=== PATIENT | female | born 1950 | race Two or more races ===

== ENCOUNTER 2024-04-09 10:17 | Emergency (ER) | payer MEDICARE, MEDICAID, SELFPAY ==
[2024-04-09 10:45] VITALS: BP 130/77; PULSE 95; RESP 20; TEMP 36.6; O2SAT 98; BMI 20.9
--- NOTE | 2024-04-09 10:49 | EKG_ITS ---
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1950 Requested By: Bridgette Martin ([facility]) [place] Order Number: [id number] Reading MD: Bridgette Martin ([facility]) [place]ar Measurements Intervals [place] Rate: 91 P: 18 AR: 124 QRS: -25 QRSD: 70 T: 6 QT: 358 QTc: 442 Interpretive Statements SINUS RHYTHM BORDERLINE LEFT AXIS DEVIATION [QRS AXIS < -20] LOW QRS VOLTAGE IN PRECORDIAL LEADS [QRS DEFLECTION < 1.0 mV IN CHEST LEADS] PATTERN CONSISTENT WITH PULMONARY DISEASE Compared to ECG 11/07/2023 14:47:40 No significant changes /store/S0/[id number].pdf
--- NOTE | 2024-04-09 10:49 | XR_ITS ---
Examination: PA lateral chest 2 views TECHNIQUE: Upright PA lateral chest 2 views Exam date and time: April 09, 2024 11:14 AM INDICATIONS: Coughing today FINDINGS: Normal heart size No lobar pneumonia No subclavian Port-A-Cath tip SVC satisfactory position Intact osseous structures IMPRESSION: Minor atelectasis left base No pneumonia identified
--- NOTE | 2024-04-09 11:10 | PD.EDRME ---
Rapid Medical Screening Exam RME Arrival date/time: 04/09/24 10:17 73-year-old female presents emergency department with complaints of shortness of breath, cough and a headache for 4 days. She was sent over by her oncologist for workup. I have greeted and performed a focused initial assessment of this patient. Initial appropriate labs ordered at this time. A comprehensive ED assessment and evaluation of the patient and analysis of all test and completion of medical decision making process will be conducted by additional ED provider. Chief Complaint: Flu Like Symptoms Time Seen by Provider: 04/09/24 10:42 Vital signs: Vital Signs Temperature 97.9 F 04/09/24 10:45 Pulse Rate 95 04/09/24 10:45 Respiratory Rate 20 04/09/24 10:45 Blood Pressure 130/77 04/09/24 10:45 Pulse Oximetry (%) 98 04/09/24 10:45 Oxygen Delivery Method Room Air 04/09/24 10:45
--- NOTE | 2024-04-09 11:12 | XR_ITS ---
Examination: CT brain head without contrast. 2-D sagittal coronal reconstructions Date and time of exam:April 09, 2024 1141 hours INDICATIONS: Sudden onset head pain today CTDI: vol (mGy):44.9 DLP: (mGycm):919 Technique: Multiple CT axial sections of the brain have been obtained, 5 mm slice thickness. Contrast has not been administered. 2-D sagittal, coronal reconstructions have been obtained Low dose protocols were performed. One or more of the following dose reduction techniques were used; automated exposure control, adjustment of the mA and/or KV according to patient size, use of iterative reconstruction technique. Findings: No significant ventricular enlargement. Encephalomalacia left frontal lobe Intra-axial or extra-axial hemorrhage density is not seen. No mass effect or midline shift Basal cisterns are not remarkable. Fourth ventricle is midline. Cranial vault intact. Impression: Negative for acute hemorrhage, mass effect or midline shift Significant chronic ethmoid sinusitis Bilateral acute maxillary sinusitis
[2024-04-09 11:28] LABS: Basophils % (Auto) 1 % (0-2.5); Eosinophils # (Auto) 0.1 Thou/mm3 (0.0-0.5); Eosinophils % (Auto) 1 % (0-10); Hematocrit 32.3 % (36.0-46.0); Hemoglobin 10.2 g/dL (12.0-16.0); Immature Granulocytes % (Auto) 1 % (0-0); Immature Granulocytes Auto 0.02 Thou/mm3 (0.00-0.00); Lymphocytes # (Auto) 1.7 Thou/mm3 (1.0-4.8); Lymphocytes % (Auto) 38 % (10-50); Mean Corpuscular HGB Conc 31.6 g/dl (31.0-37.0); Mean Corpuscular Hemoglobin 26.6 pg (25.0-35.0); Mean Corpuscular Volume 84 fL (80-100); Monocytes # (Auto) 0.5 Thou/mm3 (0.0-0.8); Monocytes % (Auto) 10 % (0-12); Neutrophils # (Auto) 2.2 Thou/mm3 (1.8-7.7); Neutrophils % (Auto) 50 % (37-80); Nucleated Red Blood Cell % 0 /100 WBC (0); Platelet Count 143 Thou/mm3 (140-440); Red Blood Count 3.84 Miln/mm3 (4.00-5.20); White Blood Count 4.4 Thou/mm3 (3.6-11.0)
[2024-04-09 11:41] LABS: INR 0.9 (0.9-1.3); Partial Thromboplastin Time 25.9 Seconds (22.0-36.0); Prothrombin Time 10.3 Seconds (9.0-12.2)
[2024-04-09 11:43] LABS: B-Type Natriuretic Peptide < 20 pg/mL (0-100)
[2024-04-09 11:46] LABS: Alanine Aminotransferase 17 U/L (10-49); Albumin, Serum 4.5 gm/dL (3.4-4.8); Alkaline Phosphatase 108 U/L (46-116); Anion Gap 5 (7-16); Aspartate Amino Transferase 22 U/L (0-34); BUN/Creatinine Ratio 15 Ratio (12-20); Bilirubin,Total 0.4 mg/dL (0.3-1.2); Blood Urea Nitrogen 9 mg/dL (9-23); Calcium 9.1 mg/dL (8.3-10.6); Calcium (Corrected) 9.1 mg/dL (8.5-10.1); Carbon Dioxide 26.1 mMol/L (20.0-31.0); Chloride 106 mMol/L (98-107); Creatinine (Component) 0.6 mg/dL (0.6-1.3); Estimated Creatinine Clearance 50.1 mL/min (>60); Globulin 2.3 gm/dL (2.3-3.5); Glucose 106 mg/dL (74-106); Lipase 36 U/L (12-53); Osmolality,Calculated 272 (275-295); Potassium 3.6 mMol/L (3.4-5.1); Sodium 137 mMol/L (136-145); Total Protein 6.8 gm/dL (5.7-8.2); Troponin I < 0.020 ng/mL (0.0-0.045); eGFR > 60 See Note
--- NOTE | 2024-04-09 13:26 | EDNOTE_ITS ---
Upper Respiratory Inf. RME/HPI General Chief Complaint: Flu Like Symptoms Stated Complaint: [place], WET COUGH, CONFUSION Time Seen by Provider: 04/09/24 10:42 Arrival date/time: 04/09/24 10:17 RME / HPI RME / HPI Narrative: 73-year-old female patient with significant history of breast cancer, currently on chemotherapy, was sent to us for evaluation regarding headache. Patient has been having headache that comes and goes, for the last 4 days, severity mild. Also complained of cough for 4 days. Associated with shortness of breath. Patient denies any fever. Denies any upper or lower extremity weakness. Patient is denying any slurring of speech also. Patient ambulatory with a walker. Denies any head trauma or fall. Related Data Home Medications ?Medication ?Instructions ?Recorded ?Confirmed atorvastatin 10 mg tablet 10 mg PO QDAY 11/07/23 11/08/23 Previous Rx's ?Medication ?Instructions ?Recorded amoxicillin 875 mg-potassium 1 tab PO BID #14 tabs 04/09/24 clavulanate 125 mg tablet Allergies Allergy/AdvReac Type Severity Reaction Status Date / Time No Known Allergies Allergy Verified 11/08/23 14:58 Review of Systems Review of Systems Narrative Review of Systems: Review of system reviewed and within normal limits except mentioned in HPI ED Exam Narrative Physical exam: VITAL SIGNS: Reviewed. GENERAL APPEARANCE: Alert and interactive, follows commands, no acute distress, HEAD AND FACE: Non-traumatic. ENT: PERRL, pink conjunctivitis, eyelid no trauma, Mucous membrane moist. NECK: Supple, nontender, no nuchal rigidity. CHEST: No tenderness, no crepitus, no paradoxical movement, no retractions. LUNGS: Clear, well ventilated, symmetric, no rales, no wheezing, no ronchi, no stridor, good breath sounds bilaterally. HEART: Regular rate, regular rhythm, no murmur, no gallops. ABDOMEN: Soft, positive bowel sounds, nondistended, no guarding, nontender, no rebound, no masses, RECTAL: Deferred. GENITAL: Deferred. NEUROLOGICAL: Gross motor function intact sensory function intact, Appropriate for age. MUSCULOSKELETAL: low back nontender, full range of motion. EXTREMITIES: Nontender, full range of motion. SKIN: Color pink, dry, no rash, no lacerations, no abrasions, no contusions. LYMPHATICS: Deferred. Course Quality Measures none Orders Category Date Time Status Bedside COVID-19 Antigen Test NOW Care 04/09/24 10:49 Active Bedside Influenza A&B Antigen Test NOW Care 04/09/24 10:49 Active EKG (ED ONLY) *Do not use* NOW Care 04/09/24 10:[address] head/brain wo con Stat Exams 04/09/24 11:12 Completed EKG (ED Only) Stat Exams 04/09/24 10:49 Draft XR chest 2V Stat Exams 04/09/24 10:49 Completed B-Type Natriuretic Peptide Stat Lab 04/09/24 11:03 Completed CBC Stat Lab 04/09/24 11:03 Completed Comprehensive Metabolic Panel Stat Lab 04/09/24 11:03 Completed Lipase Stat Lab 04/09/24 11:03 Completed Magnesium Stat Lab 04/09/24 11:03 Completed Partial Thromboplastin Time Stat Lab 04/09/24 11:03 Completed Prothrombin Time with INR Stat Lab 04/09/24 11:03 Completed Troponin I Stat Lab 04/09/24 11:03 Completed Amoxicillin/Pot Clav 875 [Augmentin 875] Med 04/09/24 14:01 Discontinued 1 tab PO X1 ONE Vital Signs Vital signs: Vital Signs Temperature 97.9 F 04/09/24 10:45 Pulse Rate 95 04/09/24 10:45 Respiratory Rate 20 04/09/24 10:45 Blood Pressure 130/77 04/09/24 10:45 Pulse Oximetry (%) 98 04/09/24 10:45 Oxygen Delivery Method Room Air 04/09/24 10:45 Upper Respiratory Infection MDM Narrative MDM Narrative:: 73-year-old female patient with significant history of breast cancer, currently on chemotherapy, was sent to us for evaluation regarding headache. Patient has been having headache that comes and goes, for the last 4 days, severity mild. Also complained of cough for 4 days. Associated with shortness of breath. Patient denies any fever. Denies any upper or lower extremity weakness. Patient is denying any slurring of speech also. Patient ambulatory with a walker. Denies any head trauma or fall. Laboratory workup all came back normal. CT scan of the head showed sinusitis otherwise unremarkable. Chest x-ray no pneumonia noted. Patient was given Augmentin in the emergency room. Patient data External records reviewed:: None Clinical information provided by:: none Social determinants that could affect healthcare access:: none Patient has the following chronic illnesses:: Breast cancer How is presenting disease/condition affected by chronic disease/condition?: uneffected by Evaluation data The following diagnostics were reviewed and interpreted by me:: lab results, radiology exam(s) and EKG tracing(s) Lab and/or radiology exams considered but not ordered:: None Interpretation Summary: EKG as interpreted by me showed sinus rhythm, ventricular rate of 91 bpm, no ST segment elevation or depression noted. CT scan of the head came back unremarkable except for sinusitis. I personally reviewed and interpreted the x- ray of this patient. There is no acute abnormalities found, no infiltrates no pneumothorax no hemothorax normal chest x-ray. Review of other structures was without significant abnormal findings also. I additionally reviewed the radiologist report and agree with the interpretation. Medications / Prescriptions Medications or Prescriptions considered but not ordered:: None Medication administrations:: Medication Administration History Discontinued Medications Amoxicillin/Clavulanate Potassium (Amoxicillin/Pot Clav 875 Tablet) 1 tab PO X1 ONE Stop: 04/09/24 14:02 Augmentin Consultations Consultation(s) initiated? (list below): No Diagnosis Upper Respiratory Differential Diagnosis: upper respiratory infection, sinusitis and bronchitis Most likely diagnosis given after review of the tests above:: Headache, sinusitis, cough Admission Indicated Admission indicated?: not indicated Explain why admission is indicated or not indicated:: Stable Admission Request Was there a request for admission?: No Disposition Plan Disposition Plan: Discharge Discharge Attestation Discharge Attestation: The patient was given an opportunity to ask questions and understood the discharge instructions. Discharge instructions specifically effects, indications for sooner follow up or return to the emergency department, and the expected course of current diagnosis. Patient condition: Stable Discharge Plan Plan Patient Disposition: HOME (Self Care) Disposition Comment: stable Prescriptions/Referrals Prescriptions/Med Rec: New amoxicillin-pot clavulanate 875-125 mg tablet 1 tab PO BID Qty: 14 0RF No Action atorvastatin 10 mg Tablet 10 mg PO QDAY Referrals: No Primary/Family,Physician [Primary Care Provider] - In 1 week Problem List Clinical Impression: Sinusitis, Headache, Cough Patient/Caregiver Discharge Instructions Discharge Activity: activity as tolerated Education Materials: Causes of Sinusitis Additional Instructions: Thank you for the opportunity for serving you today. You are stable for discharged . You are advised to: Follow-up with your PCP in 1 to 2 days Return to ED for worsening of symptoms Increase oral fluids Take medication as prescribed Print Language: Prydeinig Stand Alone Forms: Hayley Award Info., Patient Portal Info Letter PA/ASSISTANT AUDITOR Supervising Physician LEYDA/BETO Supervising Physician: MD Mini
[2024-04-09] MEDS: AMOXICILLIN/POT CLAV 875 TABLET 1 TAB PO (14:50)
== END 2024-04-09 14:56 | disposition home or self-care (01) ==
PROVIDERS: Nurse Practitioner Primary Care; Emergency Provider Emergency Medicine
DX: J32.8 Other chronic sinusitis (principal); R94.31 Abnormal electrocardiogram [ECG] [EKG]; R05.9 Cough, unspecified
CPT/HCPCS: 36415; 70450; 71046; 80053; 83690; 83735; 83880; 84484; 85025; 85610; 85730; 93005; 99284; A9270

== ENCOUNTER 2024-04-16 07:55 | Outpatient (RCR) | payer MEDICARE, MEDICAID, SELFPAY ==
[2024-04-08 16:31] LABS: Basophils % (Auto) 0 % (0-2.5); Eosinophils % (Auto) 1 % (0-10); Hemoglobin 9.5 g/dL (12.0-16.0); Immature Granulocytes % (Auto) 1 % (0-0); Immature Granulocytes Auto 0.02 Thou/mm3 (0.00-0.00); Lymphocytes # (Auto) 1.8 Thou/mm3 (1.0-4.8); Lymphocytes % (Auto) 47 % (10-50); Mean Corpuscular HGB Conc 31.7 g/dl (31.0-37.0); Mean Corpuscular Hemoglobin 26.6 pg (25.0-35.0); Mean Corpuscular Volume 84 fL (80-100); Monocytes # (Auto) 0.5 Thou/mm3 (0.0-0.8); Monocytes % (Auto) 14 % (0-12); Neutrophils # (Auto) 1.4 Thou/mm3 (1.8-7.7); Neutrophils % (Auto) 37 % (37-80); Nucleated Red Blood Cell % 0 /100 WBC (0); Platelet Count 141 Thou/mm3 (140-440); RDW Standard Deviation 55.1 fL (36.4-46.3); Red Blood Count 3.57 Miln/mm3 (4.00-5.20); White Blood Count 3.8 Thou/mm3 (3.6-11.0)
[2024-04-08 17:06] LABS: Alanine Aminotransferase 19 U/L (10-49); Albumin, Serum 4.3 gm/dL (3.4-4.8); Alkaline Phosphatase 101 U/L (46-116); Anion Gap 8 (7-16); Aspartate Amino Transferase 18 U/L (0-34); BUN/Creatinine Ratio 20 Ratio (12-20); Bilirubin,Total 0.3 mg/dL (0.3-1.2); Blood Urea Nitrogen 12 mg/dL (9-23); Calcium 9.1 mg/dL (8.3-10.6); Calcium (Corrected) 9.1 mg/dL (8.5-10.1); Carbon Dioxide 23.7 mMol/L (20.0-31.0); Chloride 107 mMol/L (98-107); Creatinine (Component) 0.6 mg/dL (0.6-1.3); Globulin 2.1 gm/dL (2.3-3.5); Glucose 91 mg/dL (74-106); Osmolality,Calculated 277 (275-295); Potassium 3.6 mMol/L (3.4-5.1); Sodium 139 mMol/L (136-145); Thyroid Stimulating Hormone 2.09 uIU/mL (0.55-4.78); Total Protein 6.4 gm/dL (5.7-8.2); eGFR > 60 See Note
[2024-04-15 14:52] LABS: Basophils % (Auto) 0 % (0-2.5); Eosinophils # (Auto) 0.1 Thou/mm3 (0.0-0.5); Eosinophils % (Auto) 1 % (0-10); Hematocrit 31.5 % (36.0-46.0); Hemoglobin 10.2 g/dL (12.0-16.0); Immature Granulocytes % (Auto) 0 % (0-0); Immature Granulocytes Auto 0.02 Thou/mm3 (0.00-0.00); Lymphocytes # (Auto) 2.2 Thou/mm3 (1.0-4.8); Lymphocytes % (Auto) 36 % (10-50); Mean Corpuscular HGB Conc 32.4 g/dl (31.0-37.0); Mean Corpuscular Hemoglobin 26.8 pg (25.0-35.0); Mean Corpuscular Volume 83 fL (80-100); Monocytes # (Auto) 0.6 Thou/mm3 (0.0-0.8); Monocytes % (Auto) 10 % (0-12); Neutrophils # (Auto) 3.3 Thou/mm3 (1.8-7.7); Neutrophils % (Auto) 52 % (37-80); Nucleated Red Blood Cell % 0 /100 WBC (0); Platelet Count 170 Thou/mm3 (140-440); RDW Standard Deviation 55.9 fL (36.4-46.3); White Blood Count 6.3 Thou/mm3 (3.6-11.0)
[2024-04-15 15:14] LABS: Alanine Aminotransferase 13 U/L (10-49); Albumin, Serum 4.3 gm/dL (3.4-4.8); Alkaline Phosphatase 97 U/L (46-116); Anion Gap 6 (7-16); Aspartate Amino Transferase 17 U/L (0-34); BUN/Creatinine Ratio 15 Ratio (12-20); Bilirubin,Total 0.3 mg/dL (0.3-1.2); Blood Urea Nitrogen 9 mg/dL (9-23); Calcium 9.1 mg/dL (8.3-10.6); Calcium (Corrected) 9.1 mg/dL (8.5-10.1); Carbon Dioxide 26.9 mMol/L (20.0-31.0); Chloride 107 mMol/L (98-107); Creatinine (Component) 0.6 mg/dL (0.6-1.3); Globulin 2.1 gm/dL (2.3-3.5); Glucose 100 mg/dL (74-106); Osmolality,Calculated 278 (275-295); Potassium 3.7 mMol/L (3.4-5.1); Sodium 140 mMol/L (136-145); Total Protein 6.4 gm/dL (5.7-8.2); eGFR > 60 See Note
== END 2024-04-25 23:59 | disposition home or self-care (01) ==
LOC: SCTC 07:55
PROVIDERS: PCP Family Medicine; Referring Provider Family Medicine; Visit Provider Internal Medicine Hematology & Oncology
DX: C50.412 Malignant neoplasm of upper-outer quadrant of left female breast (principal); Z17.421 Hormone receptor negative with human epidermal growth factor receptor 2 negative status; Z85.6 Personal history of leukemia
CPT/HCPCS: 36591; 80053; 84443; 85025; 96365; 96372; A4216; J0696; J1100; J1442; J1453; J1642; J2405; J3490; J7050; J9045; J9267

== ENCOUNTER → 2024-04-22 | Outpatient (CLI) | payer MEDICARE, MEDICAID, SELFPAY ==
--- NOTE | 2024-04-22 14:05 | ECHO_ITS ---
Transthoracic Echo Report Ht (in): 57 Wt (lb): 95 Exam Location: Echo Lab Status: Outpatient Retail Stocker: Ana Strauss Indications: Procedure Performed: BP: / HR: Rhythm: Sinus Technical Quality: Fair MEASUREMENTS (Male / Female) Normal Values 2D ECHO LV Diastolic Diameter PLAX 3.2 cm 4.2 - 5.9 / 3.9 - 5.3 cm LV Systolic Diameter PLAX 2.4 cm IVS Diastolic Thickness 0.7 cm 0.6 - 1.0 / 0.6 - 0.9 cm LVPW Diastolic Thickness 0.7 cm 0.6 - 1.0 / 0.6 - 0.9 cm LV Relative Wall Thickness 0.5 LVOT Diameter 1.5 cm LA Volume Index 15.2 cm?/m? 16 - 28 cm?/m? Ascending Aorta Diameter 2.4 cm M-MODE Aortic Root Diameter MM 2.4 cm LA Systolic Diameter MM 2.2 cm LA Ao Ratio MM 0.9 AV Cusp Separation MM 1.5 cm DOPPLER AV Peak Velocity 112.0 cm/s AV Peak Gradient 5.0 mmHg AV Mean Gradient 2.0 mmHg AV Velocity Time Integral 19.3 cm LVOT Peak Velocity 79.1 cm/s LVOT Peak Gradient 2.5 mmHg LVOT Velocity Time Integral 15.3 cm AV Area Cont Eq vti 1.4 cm? AV Area Cont Eq pk 1.2 cm? MV Peak Velocity 96.1 cm/s MV Peak Gradient 3.7 mmHg MV Mean Velocity 57.4 cm/s MV Mean Gradient 2.0 mmHg MV Area PHT 4.9 cm? Mitral E Point Velocity 45.6 cm/s Mitral A Point Velocity 76.2 cm/s Mitral E to A Ratio 0.6 LV E' Lateral Velocity 6.5 cm/s Mitral E to LV E' Lateral Ratio 7.0 LV E' Septal Velocity 4.6 cm/s Mitral E to LV E' Septal Ratio 10.0 FINDINGS Left Ventricle Normal left ventricular size, wall thickness, systolic function with no obvious regional wall motion abnormalities.The ejection fraction is visually estimated at 55-60 %. Right Ventricle The right ventricle is normal in size and systolic function. Left Atrium The left atrium is normal by two-dimensional, color flow and Doppler imaging with no structural abnormalities, no thrombus formation present. Right Atrium The right atrium is normal by two-dimensional imaging, color flow and Doppler imaging with no struct ural abnormalities, no thrombus formation present. Atrial Septum The interatrial septum appears normal with no evidence of a shunt. Aorta The aorta is normal by two-dimensional, color flow and Doppler interrogation. Mitral Valve The mitral valve is normal by two-dimensional, color flow and Doppler interrogation. There is trace mitral valve regurgitation. Aortic Valve The aortic valve is trileaflet and normal by two-dimensional, color flow and Doppler interrogation. There is no significant aortic valve regurgitation. Tricuspid Valve The tricuspid valve is normal by two-dimensional, color flow and Doppler interrogation. There is tra ce tricuspid valve regurgitation. Pulmonic Valve There is no significant pulmonic valve regurgitation. Vessels The pulmonary artery appears normal. The inferior vena cava pulmonary and hepatic veins appear frances l. Pericardium The pericardium is normal by two-dimensional imaging. There is no significant pericardial effusion. CONCLUSIONS Normal LV size and function. Estimated EF 55-60% Normal RV size and function. Trace TR, TR. Keysha Gaines (Electronically Signed) Final Date: 26 April 2024 10:13
== END | disposition home or self-care (01) ==
PROVIDERS: PCP Physician Assistant; Referring Provider Internal Medicine Hematology & Oncology; Visit Provider Internal Medicine Hematology & Oncology
DX: I08.1 Rheumatic disorders of both mitral and tricuspid valves (principal); C50.112 Malignant neoplasm of central portion of left female breast
CPT/HCPCS: 93306

== ENCOUNTER 2024-05-26 08:03 | Outpatient (RCR) | payer MEDICARE, MEDICAID, SELFPAY ==
[2024-04-30 08:39] LABS: Basophils % (Auto) 0 % (0-2.5); Eosinophils # (Auto) 0.2 Thou/mm3 (0.0-0.5); Eosinophils % (Auto) 2 % (0-10); Hematocrit 32.8 % (36.0-46.0); Hemoglobin 10.5 g/dL (12.0-16.0); Immature Granulocytes % (Auto) 0 % (0-0); Immature Granulocytes Auto 0.01 Thou/mm3 (0.00-0.00); Lymphocytes # (Auto) 2.8 Thou/mm3 (1.0-4.8); Lymphocytes % (Auto) 45 % (10-50); Mean Corpuscular Hemoglobin 26.3 pg (25.0-35.0); Mean Corpuscular Volume 82 fL (80-100); Monocytes # (Auto) 0.5 Thou/mm3 (0.0-0.8); Monocytes % (Auto) 8 % (0-12); Neutrophils # (Auto) 2.7 Thou/mm3 (1.8-7.7); Neutrophils % (Auto) 44 % (37-80); Nucleated Red Blood Cell % 0 /100 WBC (0); Platelet Count 133 Thou/mm3 (140-440); RDW Standard Deviation 52.2 fL (36.4-46.3); White Blood Count 6.2 Thou/mm3 (3.6-11.0)
[2024-04-30 08:57] LABS: Alanine Aminotransferase 12 U/L (10-49); Albumin, Serum 4.4 gm/dL (3.4-4.8); Albumin/Globulin Ratio 2.1 (1.2-2.2); Alkaline Phosphatase 95 U/L (46-116); Anion Gap 7 (7-16); Aspartate Amino Transferase 17 U/L (0-34); BUN/Creatinine Ratio 21 Ratio (12-20); Bilirubin,Total 0.7 mg/dL (0.3-1.2); Blood Urea Nitrogen 15 mg/dL (9-23); Calcium 9.2 mg/dL (8.3-10.6); Calcium (Corrected) 9.2 mg/dL (8.5-10.1); Carbon Dioxide 26.1 mMol/L (20.0-31.0); Chloride 106 mMol/L (98-107); Creatinine (Component) 0.7 mg/dL (0.6-1.3); Globulin 2.1 gm/dL (2.3-3.5); Glucose 101 mg/dL (74-106); Osmolality,Calculated 278 (275-295); Sodium 139 mMol/L (136-145); Total Protein 6.5 gm/dL (5.7-8.2); eGFR > 60 See Note
[2024-05-07 08:38] LABS: Basophils % (Auto) 1 % (0-2.5); Eosinophils # (Auto) 0.1 Thou/mm3 (0.0-0.5); Eosinophils % (Auto) 2 % (0-10); Hematocrit 31.3 % (36.0-46.0); Hemoglobin 9.9 g/dL (12.0-16.0); Immature Granulocytes % (Auto) 1 % (0-0); Immature Granulocytes Auto 0.05 Thou/mm3 (0.00-0.00); Lymphocytes # (Auto) 1.6 Thou/mm3 (1.0-4.8); Lymphocytes % (Auto) 38 % (10-50); Mean Corpuscular HGB Conc 31.6 g/dl (31.0-37.0); Mean Corpuscular Hemoglobin 26.3 pg (25.0-35.0); Mean Corpuscular Volume 83 fL (80-100); Monocytes # (Auto) 0.2 Thou/mm3 (0.0-0.8); Monocytes % (Auto) 4 % (0-12); Neutrophils # (Auto) 2.3 Thou/mm3 (1.8-7.7); Neutrophils % (Auto) 55 % (37-80); Nucleated Red Blood Cell % 0 /100 WBC (0); Platelet Count 108 Thou/mm3 (140-440); RDW Standard Deviation 51.6 fL (36.4-46.3); Red Blood Count 3.77 Miln/mm3 (4.00-5.20); White Blood Count 4.1 Thou/mm3 (3.6-11.0)
[2024-05-07 09:00] LABS: Alanine Aminotransferase 12 U/L (10-49); Albumin, Serum 4.2 gm/dL (3.4-4.8); Albumin/Globulin Ratio 2.1 (1.2-2.2); Alkaline Phosphatase 83 U/L (46-116); Anion Gap 5 (7-16); BUN/Creatinine Ratio 37 Ratio (12-20); Bilirubin,Total 0.4 mg/dL (0.3-1.2); Blood Urea Nitrogen 22 mg/dL (9-23); Calcium 9.1 mg/dL (8.3-10.6); Calcium (Corrected) 9.1 mg/dL (8.5-10.1); Carbon Dioxide 24.9 mMol/L (20.0-31.0); Chloride 107 mMol/L (98-107); Creatinine (Component) 0.6 mg/dL (0.6-1.3); Glucose 95 mg/dL (74-106); Osmolality,Calculated 277 (275-295); Potassium 4.4 mMol/L (3.4-5.1); Sodium 137 mMol/L (136-145); Total Protein 6.2 gm/dL (5.7-8.2); eGFR > 60 See Note
[2024-05-07 09:14] LABS: Aspartate Amino Transferase 13 U/L (0-34)
[2024-05-13 15:59] LABS: Basophils % (Auto) 0 % (0-2.5); Eosinophils # (Auto) 0.1 Thou/mm3 (0.0-0.5); Eosinophils % (Auto) 2 % (0-10); Hematocrit 28.4 % (36.0-46.0); Hemoglobin 9.2 g/dL (12.0-16.0); Immature Granulocytes % (Auto) 0 % (0-0); Immature Granulocytes Auto 0.01 Thou/mm3 (0.00-0.00); Lymphocytes # (Auto) 1.8 Thou/mm3 (1.0-4.8); Lymphocytes % (Auto) 66 % (10-50); Mean Corpuscular HGB Conc 32.4 g/dl (31.0-37.0); Mean Corpuscular Hemoglobin 26.4 pg (25.0-35.0); Mean Corpuscular Volume 81 fL (80-100); Monocytes # (Auto) 0.2 Thou/mm3 (0.0-0.8); Monocytes % (Auto) 8 % (0-12); Neutrophils # (Auto) 0.6 Thou/mm3 (1.8-7.7); Neutrophils % (Auto) 23 % (37-80); Nucleated Red Blood Cell % 0 /100 WBC (0); Platelet Count 112 Thou/mm3 (140-440); RDW Standard Deviation 51.8 fL (36.4-46.3); Red Blood Count 3.49 Miln/mm3 (4.00-5.20)
[2024-05-13 16:15] LABS: White Blood Count 2.7 Thou/mm3 (3.6-11.0)
[2024-05-13 16:21] LABS: Alanine Aminotransferase 11 U/L (10-49); Albumin, Serum 4.1 gm/dL (3.4-4.8); Albumin/Globulin Ratio 2.2 (1.2-2.2); Alkaline Phosphatase 93 U/L (46-116); Anion Gap 7 (7-16); Aspartate Amino Transferase 14 U/L (0-34); BUN/Creatinine Ratio 22 Ratio (12-20); Bilirubin,Total 0.3 mg/dL (0.3-1.2); Blood Urea Nitrogen 13 mg/dL (9-23); Calcium 8.6 mg/dL (8.3-10.6); Calcium (Corrected) 8.6 mg/dL (8.5-10.1); Carbon Dioxide 26.2 mMol/L (20.0-31.0); Chloride 106 mMol/L (98-107); Creatinine (Component) 0.6 mg/dL (0.6-1.3); Globulin 1.9 gm/dL (2.3-3.5); Glucose 113 mg/dL (74-106); Osmolality,Calculated 278 (275-295); Potassium 3.8 mMol/L (3.4-5.1); Sodium 139 mMol/L (136-145); Thyroid Stimulating Hormone 2.26 uIU/mL (0.55-4.78); eGFR > 60 See Note
[2024-05-26 08:57] LABS: Basophils % (Auto) 0 % (0-2.5); Eosinophils # (Auto) 0.1 Thou/mm3 (0.0-0.5); Eosinophils % (Auto) 1 % (0-10); Hematocrit 33.7 % (36.0-46.0); Hemoglobin 10.6 g/dL (12.0-16.0); Immature Granulocytes % (Auto) 0 % (0-0); Immature Granulocytes Auto 0.01 Thou/mm3 (0.00-0.00); Lymphocytes # (Auto) 2.2 Thou/mm3 (1.0-4.8); Lymphocytes % (Auto) 45 % (10-50); Mean Corpuscular HGB Conc 31.5 g/dl (31.0-37.0); Mean Corpuscular Hemoglobin 26.2 pg (25.0-35.0); Mean Corpuscular Volume 83 fL (80-100); Monocytes # (Auto) 0.5 Thou/mm3 (0.0-0.8); Monocytes % (Auto) 11 % (0-12); Neutrophils # (Auto) 2.1 Thou/mm3 (1.8-7.7); Neutrophils % (Auto) 43 % (37-80); Nucleated Red Blood Cell % 0 /100 WBC (0); Platelet Count 149 Thou/mm3 (140-440); RDW Standard Deviation 53.9 fL (36.4-46.3); Red Blood Count 4.05 Miln/mm3 (4.00-5.20); White Blood Count 4.9 Thou/mm3 (3.6-11.0)
[2024-05-26 09:21] LABS: Alanine Aminotransferase 14 U/L (10-49); Albumin/Globulin Ratio 1.8 (1.2-2.2); Alkaline Phosphatase 101 U/L (46-116); Anion Gap 7 (7-16); Aspartate Amino Transferase 20 U/L (0-34); BUN/Creatinine Ratio 14 Ratio (12-20); Bilirubin,Total 0.4 mg/dL (0.3-1.2); Blood Urea Nitrogen 11 mg/dL (9-23); Calcium 9.8 mg/dL (8.3-10.6); Calcium (Corrected) 9.8 mg/dL (8.5-10.1); Carbon Dioxide 26.7 mMol/L (20.0-31.0); Chloride 107 mMol/L (98-107); Creatinine (Component) 0.8 mg/dL (0.6-1.3); Free T4 (Free Thyroxine) 1.13 ng/dL (0.89-1.76); Globulin 2.2 gm/dL (2.3-3.5); Glucose 99 mg/dL (74-106); Osmolality,Calculated 280 (275-295); Potassium 4.3 mMol/L (3.4-5.1); Sodium 141 mMol/L (136-145); Thyroid Stimulating Hormone 2.98 uIU/mL (0.55-4.78); Total Protein 6.2 gm/dL (5.7-8.2); eGFR > 60 See Note
== END 2024-05-26 23:59 | disposition home or self-care (01) ==
LOC: SCTC 08:03
PROVIDERS: PCP Physician Assistant; Referring Provider Physician Assistant; Visit Provider Internal Medicine Hematology & Oncology
DX: Z51.11 Encounter for antineoplastic chemotherapy (principal); C50.412 Malignant neoplasm of upper-outer quadrant of left female breast; Z17.421 Hormone receptor negative with human epidermal growth factor receptor 2 negative status; Z85.6 Personal history of leukemia
CPT/HCPCS: 36591; 80053; 84439; 84443; 85025; 96367; 96372; 96375; 96413; 96417; A4216; J1100; J1453; J1642; J2405; J3490; J7040; J7050; J9045; J9267; Q5101; A9270

== ENCOUNTER 2024-06-18 13:02 | Outpatient (RCR) | payer MEDICARE, MEDICAID, SELFPAY ==
--- NOTE | 2024-06-03 01:37 | CTCFLWUP_ITS ---
Patient: SHIRA GALLEGOS : 1950 Page 3 of 4 FOLLOW UP NOTE DATE OF SERVICE: 06/02/2024 NAME: SHIRA GALLEGOS ACCOUNT: [id number] : 1950 AGE: 73 INTERVAL HISTORY: Patient is diagnosed with triple negative breast cancer and is on chemotherapy based on keynote trial . ONCOLOGY HISTORY: DIAGNOSIS: Malignant neoplasm of central portion of left female breast [ICD10] C50.112 DATE OF DIAGNOSIS: Initial diagnosis in 2021 STAGE/TNM: TREATMENT HISTORY: Care?Plan Start?Date Cycle Day Intent DOXOrubicin?60,?Cyclophos?600?q?3wks 01/30/2024 1 21 Palliative Taxol?175/m2?q?2?wks?q?3wks?for?4?cycles 12/12/2023 1 21 Curative?(primary) TNBC?Pembro?17?cy?TaxCar?4?cy?Keynote?522?amended 11/21/2023 1 21 De-Bulking TNBC?Pembro?17?cy?TaxCar?4?cy?Keynote?522?amended 12/17/2023 1 21 De-Bulking HISTORY OF PRESENT ILLNESS: Shira Gallegos is a 73-year-old ENG speaking female currently undergoing chemotherapy at [facility] transferred her care to our center due to transportation reasons. Accordi ng to the patient she had 3 cycles of AC chemotherapy so far. Her last chemo was given in June 28. Ms. Gallegos was tolerating chemotherapy reasonably well. She also has Chemo-Port in place. Acc ording to Ms. Gallegos it was never used and it was causing a lot of pain. She wants the Chemo-Port to be removed. I have very few records of her care. Will try to get the records. She also has a hist ory of CLL. 12/02/2023: Ms. Gallegos had her fourth cycle of AC chemotherapy. 12/17/2023: Ms. Gallegos received first cycle of neoadjuvant pembrolizumab paclitaxel and carboplatin. 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 Compazine - 10 mg 1 tab As directed 2. Ibuprofen 200 - 200 mg tab As directed 3. ondansetron - 8 mg 1 tab As directed Medications Last Reconciled by Arminda Marrero MA on 06/02/2024 ALLERGIES: No Known Drug Allergies REVIEW OF SYSTEMS: A complete 14-point review of systems was performed and is negative except as noted in interval histo ry. PHYSICAL EXAMINATION: VITAL SIGNS: Temperature?99.3, B/P?119/79, Oxygen?Saturation?99% Weight?98.2?lbs (Change?since?05/28/24 :?-1.6?lbs) PAIN: 0 - No pain ECOG Performance Status: 2 - Symptomatic; ambulatory; capable of self-care; >50% of waking hrs. not i n bed GENERAL APPEARANCE: Appears well, in no apparent distress, appropriately interactive. HEENT: Normocephalic, no temporal wasting, normal conjunctiva, no scleral icterus, normal hearing, li ps without lesions, neck normal range of motion. CARDIOVASCULAR: Not assessed. PULMONARY: Normal respiratory effort, no respiratory distress or use of accessory muscles, speaking i n full sentences, no tachypnea. EXTREMITIES: No pedal edema or cyanosis. SKIN: Normal skin appearance. NEUROLOGIC: Alert and oriented x4. PSHYCHIATRIC: Appropriate affect, mood normal, behavior normal, intact thought and speech. Breast examination shows residual mass about 1 to 2 cm LABORATORY DATA: I have personally reviewed and interpreted each of the patient?s relevant lab tests, abnormal finding s are below: Date 05/26/24 ??WHITE?BLOOD?COUNT?(Thou/mm3) 4.9 ??RED?BLOOD?COUNT?(Miln/mm3) 4.05 ??HEMOGLOBIN?(gm/dl) 10.6?L ??HEMATOCRIT?(%) 33.7?L ??PLATELET?COUNT?(Thou/mm3) 149 ??NEUTROPHILS?%,?AUTO?(%) 43 ??LYMPH?%,?AUTO?(%) 45 ??NEUTROPHILS,?AUTO?(Thou/mm3) 2.1 ASSESSMENT/PLAN: 1. Ms. Gallegos has about 3 to 4 cm mass palpable in the left breast. S/p cycle 4 pembrolizumab, Taxol and carboplatin chemotherapy on 02/11/2024 in the neoadjuvant setting. 2. She recently had a fourth cycle of AC chemotherapy in the neoadjuvant. 3. triple negative breast cancer of the right breast. 4. Patient had 3 cycles of neoadjuvant AC chemotherapy so far. Her last chemo was given in June 2023. 5. History of CLL. Chemotherapy is complete Discussed with surgeon and patient will proceed with lumpectomy or mastectomy as per patient and surg jemal's decision will continue immunotherapy Once surgery date is established, immunotherapy can be held 3 weeks before surgery. Immunotherapy ca n be resumed after 3 weeks of surgery. Will continue immunotherapy for total 1 year. CBC CMP TSH T4 RETURN TO CLINIC: 4 to 6 weeks BILLING AND COMPLIANCE: I reviewed external records from providers outside my specialty as summarized above. I spent a total of 50 minutes on this patient?s care on the day of their visit excluding time spent related to any bi lled procedures. This time includes time spent with the patient as well as time spent documenting in the medical record, reviewing patients records and tests, obtaining history, placing orders, communi cating with other healthcare professionals, counseling the patient, family or caregiver, and/or care coordination for the diagnoses above. Electronically Signed by: Konstantin Azar MD T: 1:35 AM CC: PCP: Cody Royal Referring: Cody Royal This document was completed utilizing speech recognition software. Grammatical errors, random word in sertions, pronoun errors, and incomplete sentences are an occasional consequence of this system due t o software limitations, ambient noise, and hardware issues. Any formal questions or concerns about th e content, text or information contained within the body of this dictation should be directly address ed to the provider for clarification.
[2024-06-17 11:11] LABS: Basophils % (Auto) 0 % (0-2.5); Eosinophils # (Auto) 0.8 Thou/mm3 (0.0-0.5); Eosinophils % (Auto) 11 % (0-10); Hematocrit 34.9 % (36.0-46.0); Hemoglobin 11.2 g/dL (12.0-16.0); Immature Granulocytes % (Auto) 0 % (0-0); Immature Granulocytes Auto 0.01 Thou/mm3 (0.00-0.00); Lymphocytes # (Auto) 2.5 Thou/mm3 (1.0-4.8); Lymphocytes % (Auto) 37 % (10-50); Mean Corpuscular HGB Conc 32.1 g/dl (31.0-37.0); Mean Corpuscular Hemoglobin 25.8 pg (25.0-35.0); Mean Corpuscular Volume 80 fL (80-100); Monocytes # (Auto) 0.4 Thou/mm3 (0.0-0.8); Monocytes % (Auto) 6 % (0-12); Neutrophils # (Auto) 3.1 Thou/mm3 (1.8-7.7); Neutrophils % (Auto) 46 % (37-80); Nucleated Red Blood Cell % 0 /100 WBC (0); Platelet Count 127 Thou/mm3 (140-440); RDW Standard Deviation 49.1 fL (36.4-46.3); Red Blood Count 4.34 Miln/mm3 (4.00-5.20); White Blood Count 6.8 Thou/mm3 (3.6-11.0)
[2024-06-17 11:33] LABS: Alanine Aminotransferase 16 U/L (10-49); Albumin, Serum 4.2 gm/dL (3.4-4.8); Albumin/Globulin Ratio 1.8 (1.2-2.2); Alkaline Phosphatase 104 U/L (46-116); Anion Gap 7 (7-16); Aspartate Amino Transferase 22 U/L (0-34); BUN/Creatinine Ratio 21 Ratio (12-20); Bilirubin,Total 0.5 mg/dL (0.3-1.2); Blood Urea Nitrogen 15 mg/dL (9-23); Carbon Dioxide 25.4 mMol/L (20.0-31.0); Chloride 108 mMol/L (98-107); Creatinine (Component) 0.7 mg/dL (0.6-1.3); Free T3 2.5 pg/mL (2.3-4.2); Globulin 2.4 gm/dL (2.3-3.5); Glucose 102 mg/dL (74-106); Osmolality,Calculated 280 (275-295); Sodium 140 mMol/L (136-145); Thyroid Stimulating Hormone 1.89 uIU/mL (0.55-4.78); Total Protein 6.6 gm/dL (5.7-8.2); eGFR > 60 See Note
[2024-06-17 11:49] LABS: CA 15-3 4.3 U/mL (<32.4)
== END 2024-06-26 23:59 | disposition home or self-care (01) ==
LOC: SCTC 13:02
PROVIDERS: PCP Physician Assistant; Referring Provider Physician Assistant; Visit Provider Internal Medicine Hematology & Oncology
DX: Z51.11 Encounter for antineoplastic chemotherapy (principal); C50.412 Malignant neoplasm of upper-outer quadrant of left female breast; Z17.421 Hormone receptor negative with human epidermal growth factor receptor 2 negative status; Z85.6 Personal history of leukemia
CPT/HCPCS: 36591; 80053; 84443; 84481; 85025; 86300; 96413; 99212; A4216; J1642; J9271; G0463

== ENCOUNTER 2024-07-10 06:00 | Day surgery (SDC) | payer MEDICARE, MEDICAID, SELFPAY ==
--- NOTE | 2024-07-09 06:00 | EKG_ITS ---
[facility] Test Date: 2024-07-09 Pat Name: SYMONE GALLEGOS Department: Room: - Gender: Female Database Management Specialist: ERICKA : 1950 Requested By: Lawrence Davidson Order Number: [id number] Reading MD: Lawrence Davidson Measurements Intervals [place] Rate: 92 P: 29 MT: 109 QRS: 32 QRSD: 73 T: 31 QT: 365 QTc: 453 Interpretive Statements SINUS RHYTHM WITH SHORT MT INTERVAL LOW QRS VOLTAGE IN PRECORDIAL LEADS PATTERN CONSISTENT WITH PULMONARY DISEASE Compared to ECG 04/09/2024 10:58:00 Short MT interval now present /store/S0/[id number]/ecg/[id number].pdf
[2024-07-09 13:39] VITALS: BMI 21.8
[2024-07-09 16:31] LABS: Basophils % (Auto) 0 % (0-2.5); Eosinophils # (Auto) 0.4 Thou/mm3 (0.0-0.5); Eosinophils % (Auto) 6 % (0-10); Hematocrit 39.6 % (36.0-46.0); Hemoglobin 12.8 g/dL (12.0-16.0); Immature Granulocytes % (Auto) 0 % (0-0); Immature Granulocytes Auto 0.01 Thou/mm3 (0.00-0.00); Lymphocytes # (Auto) 2.7 Thou/mm3 (1.0-4.8); Lymphocytes % (Auto) 39 % (10-50); Mean Corpuscular HGB Conc 32.3 g/dl (31.0-37.0); Mean Corpuscular Hemoglobin 25.4 pg (25.0-35.0); Mean Corpuscular Volume 79 fL (80-100); Monocytes # (Auto) 0.5 Thou/mm3 (0.0-0.8); Monocytes % (Auto) 8 % (0-12); Neutrophils # (Auto) 3.2 Thou/mm3 (1.8-7.7); Neutrophils % (Auto) 47 % (37-80); Nucleated Red Blood Cell % 0 /100 WBC (0); Platelet Count 144 Thou/mm3 (140-440); RDW Standard Deviation 44.7 fL (36.4-46.3); Red Blood Count 5.03 Miln/mm3 (4.00-5.20)
[2024-07-09 16:40] LABS: Partial Thromboplastin Time 25.8 Seconds (22.0-36.0); Prothrombin Time 10.9 Seconds (9.0-12.2)
[2024-07-09 16:50] LABS: Alanine Aminotransferase 17 U/L (10-49); Albumin, Serum 4.2 gm/dL (3.4-4.8); Albumin/Globulin Ratio 1.8 (1.2-2.2); Alkaline Phosphatase 115 U/L (46-116); Anion Gap 10 (7-16); Aspartate Amino Transferase 21 U/L (0-34); BUN/Creatinine Ratio 21 Ratio (12-20); Bilirubin,Total 0.7 mg/dL (0.3-1.2); Blood Urea Nitrogen 17 mg/dL (9-23); Calcium 9.2 mg/dL (8.3-10.6); Calcium (Corrected) 9.2 mg/dL (8.5-10.1); Chloride 106 mMol/L (98-107); Creatinine (Component) 0.8 mg/dL (0.6-1.3); Estimated Creatinine Clearance 37.6 mL/min (>60); Globulin 2.3 gm/dL (2.3-3.5); Glucose 88 mg/dL (74-106); Osmolality,Calculated 281 (275-295); Potassium 4.1 mMol/L (3.4-5.1); Sodium 141 mMol/L (136-145); Total Protein 6.5 gm/dL (5.7-8.2); eGFR > 60 See Note
[2024-07-10] VITALS (10 sets, daily range): BP systolic 118–164; BP diastolic 67–95; PULSE 74–89; RESP 12–20; TEMP 36.5–36.8; O2SAT 95–100; BMI 21.8
[2024-07-10] MEDS: RINGERS LACTATED 1000 ML 1,000 ML 20 ML IV (07:14)
--- NOTE | 2024-07-10 07:39 | CHAP ---
Patient expressed gratitude for prayer before their procedure.
--- NOTE | 2024-07-10 08:00 | XR_ITS ---
Examination: Nuclear medicine lymph glands imaging Mclean lymph node study Exam date and time: July 10, 2024 0800 hours INDICATIONS: Diagnosis left breast cancer preop today lumpectomy and node dissection TECHNIQUE AND FINDINGS: Informed consent provided. Timeout performed. Skin prepped over the left breast and sterile drape applied hand hygiene 1% lidocaine administered for local anesthesia 2.2 mCi technetium 90 9M filtered sulfur colloid introduced retroareolar No imaging Estimated blood loss 0 cc IMPRESSION: Successful sentinel lymph node study as above
--- NOTE | 2024-07-10 10:55 | SUR.PHASEI ---
1051 Patient arrived to recovery resting comfortably in [facility], breathing unlabored, vital signs stable, denies pain, dressing intact to upper chest; stable, adaptic, fluffs, breast binder, no bleeding noted, SABA drain 15F round in place with drain sponge; draining to gravity with serosanguineous fluid in drain, lung sounds clear upon auscultation, bilateral radial pulses present when palpated, report received from Dr. Darby and Bradly TOUSSAINT
[2024-07-10] MEDS: KETOROLAC INJ 30 MG/ML VIAL IVP (11:24)
--- NOTE | 2024-07-10 11:24 | PD.SUROPNT ---
Date of Procedure 07/10/24 Pre Op Diagnosis Infiltrating ductal carcinoma of the left breast, multicentric disease Post Op Diagnosis Same Procedure Mastectomy and sentinel node biopsy of the left axilla Findings Patient was found to have a palpable lump at 2 o'clock position of the left breast after neoadjuvant therapy. Even though she did not have any axillary lymph nodes sentinel node biopsy was planned. Procedure Description After the patient was brought to the preop area she was sent to x-ray and sentinel node injection was performed with technetium by Dr. Rust. Patient was then brought to the operating room and endotracheal anesthesia was given. The left breast was washed with ChloraPrep solution draped in a sterile manner along with the left axilla and the left upper extremity. The left upper extremity was draped so that it could be moved during surgery. Timeout was performed. Then I made an elliptical incision of the over the left chest wall and dissected the flaps by using skin hooks. The breast was then removed from the pectoralis major muscle including the fascia and delivered out. I used the neoprobe to identify 1 sentinel node which was removed with surrounding fatty tissue. There were no other axillary nodes found after diligent search. The bleeding points were controlled with cautery and hot packs and I placed a 15 round Martin-Chatterjee over the chest wall and brought it out through the small stab wound and sutured to the skin with 2-0 silk. Then 3-0 chromic subcu tenia sutures were used to approximate the flaps which were stapled together. Dressing was applied with Adaptic and fluffs and compression dressing with breast binder was given. Patient tolerated procedure well. Anesthesia GETA Pathology / specimen Other (1. The left breast with cancer at 2 o'clock position, sentinel node) IVF Infused 800 Estimated Blood Loss 100 Surgeon Taye Viera MD Surgical Staff Operation Date: 07/10/24 09:00 Case Staff Anesthesiologist: Jessee Darby RN First Assistant: Lucia Carpio
[2024-07-10] MEDS: ACETAMINOPHEN IVPB 1,000 MG/100 ML VIAL 250 MG IV (11:28)
== END 2024-07-10 12:15 | disposition home or self-care (01) ==
PROVIDERS: PCP Family Medicine; Referring Provider Surgery; Visit Provider Surgery
PROC: (CPT 38500; principal; 2024-07-10 08:45)
DX: C50.412 Malignant neoplasm of upper-outer quadrant of left female breast (principal); Z01.810 Encounter for preprocedural cardiovascular examination
CPT/HCPCS: 38500; 19303; 36415; 80053; 85025; 85610; 85730; 88361; 93005; A4217; A4649; A9541; J0131; J1885; J2250; J2371; J2405; J2704; J2765; J3010; J3490; J7120; A9270

== ENCOUNTER 2024-08-11 08:40 | Outpatient (RCR) | payer MEDICARE, MEDICAID, SELFPAY ==
[2024-08-10 16:23] LABS: Basophils % (Auto) 1 % (0-2.5); Eosinophils # (Auto) 0.2 Thou/mm3 (0.0-0.5); Eosinophils % (Auto) 3 % (0-10); Hematocrit 37.7 % (36.0-46.0); Immature Granulocytes % (Auto) 0 % (0-0); Immature Granulocytes Auto 0.01 Thou/mm3 (0.00-0.00); Lymphocytes # (Auto) 3.1 Thou/mm3 (1.0-4.8); Lymphocytes % (Auto) 48 % (10-50); Mean Corpuscular HGB Conc 31.8 g/dl (31.0-37.0); Mean Corpuscular Hemoglobin 25.3 pg (25.0-35.0); Mean Corpuscular Volume 80 fL (80-100); Monocytes # (Auto) 0.4 Thou/mm3 (0.0-0.8); Monocytes % (Auto) 6 % (0-12); Neutrophils # (Auto) 2.8 Thou/mm3 (1.8-7.7); Neutrophils % (Auto) 43 % (37-80); Nucleated Red Blood Cell % 0 /100 WBC (0); Platelet Count 132 Thou/mm3 (140-440); RDW Standard Deviation 43.9 fL (36.4-46.3); Red Blood Count 4.74 Miln/mm3 (4.00-5.20); White Blood Count 6.4 Thou/mm3 (3.6-11.0)
[2024-08-10 16:47] LABS: Alanine Aminotransferase 14 U/L (10-49); Albumin/Globulin Ratio 1.7 (1.2-2.2); Alkaline Phosphatase 94 U/L (46-116); Anion Gap 9 (7-16); Aspartate Amino Transferase 20 U/L (0-34); BUN/Creatinine Ratio 17 Ratio (12-20); Bilirubin,Total 0.8 mg/dL (0.3-1.2); Blood Urea Nitrogen 12 mg/dL (9-23); Calcium 9.1 mg/dL (8.3-10.6); Calcium (Corrected) 9.1 mg/dL (8.5-10.1); Carbon Dioxide 25.9 mMol/L (20.0-31.0); Chloride 105 mMol/L (98-107); Creatinine (Component) 0.7 mg/dL (0.6-1.3); Globulin 2.4 gm/dL (2.3-3.5); Glucose 85 mg/dL (74-106); Osmolality,Calculated 278 (275-295); Potassium 4.6 mMol/L (3.4-5.1); Sodium 140 mMol/L (136-145); Total Protein 6.4 gm/dL (5.7-8.2); eGFR > 60 See Note
== END 2024-08-24 23:59 | disposition home or self-care (01) ==
LOC: SCTC 08:40
PROVIDERS: PCP Family Medicine; Referring Provider Family Medicine; Visit Provider Internal Medicine Hematology & Oncology
DX: Z51.11 Encounter for antineoplastic chemotherapy (principal); C50.412 Malignant neoplasm of upper-outer quadrant of left female breast; Z17.421 Hormone receptor negative with human epidermal growth factor receptor 2 negative status; Z85.6 Personal history of leukemia
CPT/HCPCS: 36591; 80053; 84443; 85025; 96413; A4216; J1100; J1642; J2405; J7050; J9271

== ENCOUNTER 2024-09-22 12:58 | Outpatient (RCR) | payer MEDICARE, MEDICAID, SELFPAY ==
[2024-08-31 14:39] LABS: Basophils % (Auto) 0 % (0-2.5); Eosinophils # (Auto) 0.1 Thou/mm3 (0.0-0.5); Eosinophils % (Auto) 2 % (0-10); Hematocrit 34.2 % (36.0-46.0); Hemoglobin 11.2 g/dL (12.0-16.0); Immature Granulocytes % (Auto) 0 % (0-0); Immature Granulocytes Auto 0.01 Thou/mm3 (0.00-0.00); Lymphocytes # (Auto) 2.6 Thou/mm3 (1.0-4.8); Lymphocytes % (Auto) 47 % (10-50); Mean Corpuscular HGB Conc 32.7 g/dl (31.0-37.0); Mean Corpuscular Hemoglobin 26.2 pg (25.0-35.0); Mean Corpuscular Volume 80 fL (80-100); Monocytes # (Auto) 0.4 Thou/mm3 (0.0-0.8); Monocytes % (Auto) 7 % (0-12); Neutrophils # (Auto) 2.4 Thou/mm3 (1.8-7.7); Neutrophils % (Auto) 44 % (37-80); Nucleated Red Blood Cell % 0 /100 WBC (0); Platelet Count 117 Thou/mm3 (140-440); RDW Standard Deviation 43.9 fL (36.4-46.3); Red Blood Count 4.27 Miln/mm3 (4.00-5.20); White Blood Count 5.5 Thou/mm3 (3.6-11.0)
[2024-08-31 15:25] LABS: Alanine Aminotransferase 13 U/L (10-49); Albumin, Serum 3.8 gm/dL (3.4-4.8); Albumin/Globulin Ratio 1.8 (1.2-2.2); Alkaline Phosphatase 93 U/L (46-116); Anion Gap 9 (7-16); Aspartate Amino Transferase 21 U/L (0-34); BUN/Creatinine Ratio 14 Ratio (12-20); Bilirubin,Total 0.8 mg/dL (0.3-1.2); Blood Urea Nitrogen 11 mg/dL (9-23); Calcium 8.5 mg/dL (8.3-10.6); Calcium (Corrected) 8.7 mg/dL (8.5-10.1); Carbon Dioxide 24.9 mMol/L (20.0-31.0); Chloride 106 mMol/L (98-107); Creatinine (Component) 0.8 mg/dL (0.6-1.3); Globulin 2.1 gm/dL (2.3-3.5); Glucose 119 mg/dL (74-106); Osmolality,Calculated 279 (275-295); Potassium 4.1 mMol/L (3.4-5.1); Sodium 140 mMol/L (136-145); Thyroid Stimulating Hormone 2.03 uIU/mL (0.55-4.78); Total Protein 5.9 gm/dL (5.7-8.2); eGFR > 60 See Note
[2024-08-31 15:40] LABS: CA 15-3 3.3 U/mL (<32.4)
[2024-09-22 13:29] LABS: Basophils % (Auto) 0 % (0-2.5); Eosinophils # (Auto) 0.1 Thou/mm3 (0.0-0.5); Eosinophils % (Auto) 2 % (0-10); Hematocrit 36.6 % (36.0-46.0); Immature Granulocytes % (Auto) 0 % (0-0); Immature Granulocytes Auto 0.01 Thou/mm3 (0.00-0.00); Lymphocytes # (Auto) 2.7 Thou/mm3 (1.0-4.8); Lymphocytes % (Auto) 43 % (10-50); Mean Corpuscular HGB Conc 32.8 g/dl (31.0-37.0); Mean Corpuscular Hemoglobin 25.8 pg (25.0-35.0); Mean Corpuscular Volume 79 fL (80-100); Monocytes # (Auto) 0.4 Thou/mm3 (0.0-0.8); Monocytes % (Auto) 7 % (0-12); Neutrophils % (Auto) 48 % (37-80); Nucleated Red Blood Cell % 0 /100 WBC (0); Platelet Count 134 Thou/mm3 (140-440); RDW Standard Deviation 42.7 fL (36.4-46.3); Red Blood Count 4.65 Miln/mm3 (4.00-5.20); White Blood Count 6.2 Thou/mm3 (3.6-11.0)
[2024-09-22 13:56] LABS: Alanine Aminotransferase 11 U/L (10-49); Albumin/Globulin Ratio 1.8 (1.2-2.2); Alkaline Phosphatase 103 U/L (46-116); Anion Gap 8 (7-16); Aspartate Amino Transferase 18 U/L (0-34); BUN/Creatinine Ratio 19 Ratio (12-20); Bilirubin,Total 0.9 mg/dL (0.3-1.2); Blood Urea Nitrogen 17 mg/dL (9-23); Calcium 8.9 mg/dL (8.3-10.6); Calcium (Corrected) 8.9 mg/dL (8.5-10.1); Carbon Dioxide 25.6 mMol/L (20.0-31.0); Chloride 108 mMol/L (98-107); Creatinine (Component) 0.9 mg/dL (0.6-1.3); Globulin 2.2 gm/dL (2.3-3.5); Glucose 124 mg/dL (74-106); Osmolality,Calculated 285 (275-295); Potassium 4.1 mMol/L (3.4-5.1); Sodium 142 mMol/L (136-145); Thyroid Stimulating Hormone 2.21 uIU/mL (0.55-4.78); Total Protein 6.2 gm/dL (5.7-8.2); eGFR > 60 See Note
== END 2024-09-23 23:59 | disposition home or self-care (01) ==
LOC: SCTC 12:58
PROVIDERS: PCP Family Medicine; Referring Provider Family Medicine; Visit Provider Internal Medicine Hematology & Oncology
DX: Z51.11 Encounter for antineoplastic chemotherapy (principal); C50.412 Malignant neoplasm of upper-outer quadrant of left female breast; Z17.421 Hormone receptor negative with human epidermal growth factor receptor 2 negative status; Z85.6 Personal history of leukemia
CPT/HCPCS: 36591; 80053; 84443; 85025; 86300; 96413; A4216; J1642; J7050; J9271

== ENCOUNTER 2024-10-13 13:08 | Outpatient (RCR) | payer MEDICARE, MEDICAID, SELFPAY ==
[2024-10-12 15:51] LABS: Basophils % (Auto) 0 % (0-2.5); Eosinophils # (Auto) 0.1 Thou/mm3 (0.0-0.5); Eosinophils % (Auto) 2 % (0-10); Hematocrit 35.1 % (36.0-46.0); Hemoglobin 11.2 g/dL (12.0-16.0); Immature Granulocytes % (Auto) 0 % (0-0); Immature Granulocytes Auto 0.02 Thou/mm3 (0.00-0.00); Lymphocytes # (Auto) 3.2 Thou/mm3 (1.0-4.8); Lymphocytes % (Auto) 47 % (10-50); Mean Corpuscular HGB Conc 31.9 g/dl (31.0-37.0); Mean Corpuscular Hemoglobin 25.7 pg (25.0-35.0); Mean Corpuscular Volume 81 fL (80-100); Monocytes # (Auto) 0.5 Thou/mm3 (0.0-0.8); Monocytes % (Auto) 7 % (0-12); Neutrophils % (Auto) 44 % (37-80); Nucleated Red Blood Cell % 0 /100 WBC (0); Platelet Count 126 Thou/mm3 (140-440); RDW Standard Deviation 46.1 fL (36.4-46.3); Red Blood Count 4.36 Miln/mm3 (4.00-5.20); White Blood Count 6.8 Thou/mm3 (3.6-11.0)
[2024-10-12 16:19] LABS: Alanine Aminotransferase 10 U/L (10-49); Albumin/Globulin Ratio 1.8 (1.2-2.2); Alkaline Phosphatase 100 U/L (46-116); Anion Gap 10 (7-16); Aspartate Amino Transferase 18 U/L (0-34); BUN/Creatinine Ratio 19 Ratio (12-20); Bilirubin,Total 0.5 mg/dL (0.3-1.2); Blood Urea Nitrogen 15 mg/dL (9-23); Calcium 8.4 mg/dL (8.3-10.6); Calcium (Corrected) 8.4 mg/dL (8.5-10.1); Carbon Dioxide 24.8 mMol/L (20.0-31.0); Chloride 106 mMol/L (98-107); Creatinine (Component) 0.8 mg/dL (0.6-1.3); Globulin 2.2 gm/dL (2.3-3.5); Glucose 108 mg/dL (74-106); Osmolality,Calculated 283 (275-295); Potassium 4.2 mMol/L (3.4-5.1); Sodium 141 mMol/L (136-145); Thyroid Stimulating Hormone 2.34 uIU/mL (0.55-4.78); Total Protein 6.2 gm/dL (5.7-8.2); eGFR > 60 See Note
--- NOTE | 2024-10-25 21:33 | CTCFLWUP_ITS ---
Patient: SHIRA GALLEGOS : 1950 Page 6 of 7 FOLLOW UP NOTE DATE OF SERVICE: 10/21/2024 NAME: SHIRA GALLEGOS ACCOUNT: [id number] : 1950 AGE: 74 INTERVAL HISTORY: Patient is diagnosed with triple negative breast cancer and is on chemotherapy based on keynote trial. Subjective: Chief Complaint Follow-up for ongoing cancer treatment, monitoring for cancer recurrence History of Present Illness Ping Silva is a patient with triple-negative breast cancer currently undergoing immunotherapy treatment with Keytruda. She is here for a follow-up visit after a 3-4 month gap in care. The patient is currently on her 10th treatment of Keytruda, with approximately 6 treatments remaining until March 09. She reports no new symptoms or complications from the treatment. The clinician emphasized the importance of monitoring for potential side effects, including blood in the stool, new shortness of breath, or abdominal pain, and seeking immediate medical attention if these occur. Shira lives alone, which may impact her social support during treatment. She has mild anemia, which will be further investigated. The patient's overall health status appears stable, with no reported worsening of symptoms or new concerns since her last visit. Medications and Supplements - Keytruda - Currently on 10th treatment, with 6 treatments left - Not toxic unlike chemo Review of Systems Gastrointestinal: Negative for blood in the stool, abdominal pain. Respiratory: Negative for new shortness of breath. Objective: Laboratory, Imaging, and Diagnostic Test Results - Labs: - Mild anemia noted (specific values not provided) ONCOLOGY HISTORY: DIAGNOSIS: Malignant neoplasm of central portion of left female breast [ICD10] C50.112 DATE OF DIAGNOSIS: Initial diagnosis in 2021 STAGE/TNM: TREATMENT HISTORY: Care?Plan Start?Date Cycle Day Intent DOXOrubicin?60,?Cyclophos?600?q?3wks 01/30/2024 1 21 Palliative Taxol?175/m2?q?2?wks?q?3wks?for?4?cycles 12/12/2023 1 21 Curative?(primary) TNBC?Pembro?17?cy?TaxCar?4?cy?Keynote?522?amended 11/21/2023 1 21 De-Bulking TNBC?Pembro?17?cy?TaxCar?4?cy?Keynote?522?amended 12/17/2023 1 21 De-Bulking HISTORY OF PRESENT ILLNESS: Shira Gallegos is a 74-year-old ENG speaking female currently undergoing chemotherapy at [facility] transferred her care to our center due to transportation reasons. According to the patient she had 3 cycles of AC chemotherapy so far. Her last chemo was given in June 2023. Ms. Gallegos was tolerating chemotherapy reasonably well. She also has Chemo-Port in place. According to Ms. Gallegos it was never used and it was causing a lot of pain. She wants the Chemo-Port to be removed. I have very few records of her care. Will try to get the records. She also has a history of CLL. 12/02/2023: Ms. Gallegos had her fourth cycle of AC chemotherapy. 12/17/2023: Ms. Gallegos received first cycle of neoadjuvant pembrolizumab paclitaxel and carboplatin. 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 Compazine - 10 mg 1 tab As directed 2. Ibuprofen 200 - 200 mg tab As directed 3. ondansetron - 8 mg 1 tab As directed Medications Last Reconciled by Arminda Marrero MA on 10/21/2024 ALLERGIES: No Known Drug Allergies REVIEW OF SYSTEMS: A complete 14-point review of systems was performed and is negative except as noted in interval history. PHYSICAL EXAMINATION: VITAL SIGNS: Temperature?98.7, B/P?108/69, Oxygen?Saturation?99% Weight?89?lbs (Change?since?10/13/24:?-6.2?lbs) PAIN: 0 - No pain ECOG Performance Status: 0 - Asymptomatic and fully active GENERAL APPEARANCE: Appears well, in no apparent distress, appropriately interactive. HEENT: Normocephalic, no temporal wasting, normal conjunctiva, no scleral icterus, normal hearing, lips without lesions, neck normal range of motion. CARDIOVASCULAR: Not assessed. PULMONARY: Normal respiratory effort, no respiratory distress or use of accessory muscles, speaking in full sentences, no tachypnea. EXTREMITIES: No pedal edema or cyanosis. SKIN: Normal skin appearance. NEUROLOGIC: Alert and oriented x4. PSHYCHIATRIC: Appropriate affect, mood normal, behavior normal, intact thought and speech. Breast examination shows residual mass about 1 to 2 cm LABORATORY DATA: I have personally reviewed and interpreted each of the patient?s relevant lab tests, abnormal findings are below: Date 09/22/24 10/12/24 ??WHITE?BLOOD?COUNT?(Thou/mm3) 6.2 6.8 ??RED?BLOOD?COUNT?(Miln/mm3) 4.65 4.36 ??HEMOGLOBIN?(gm/dl) 12.0 11.2?L ??HEMATOCRIT?(%) 36.6 35.1?L ??PLATELET?COUNT?(Thou/mm3) 134?L 126?L ??NEUTROPHILS?%,?AUTO?(%) 48 44 ??LYMPH?%,?AUTO?(%) 43 47 ??NEUTROPHILS,?AUTO?(Thou/mm3) 3.0 3.0 ??GLUCOSE,RANDOM?(mg/dL) 124?H 108?H ??BLOOD?UREA?NITROGEN?(mg/dL) 17 15 ??CREATININE?(mg/dL) 0.90 0.80 ??SODIUM?(mmol/L) 142 141 ??POTASSIUM?(mmol/L) 4.1 4.2 ??CHLORIDE?(mmol/L) 108?H 106 ??CrCl?(CandG)?(ml/min) 36.35 39.85 ??AST/SGOT?(Unit/L) 18 18 ??ALT/SGPT?(Unit/L) 11 10 ??ALKALINE?PHOSPHATASE?(Unit/L) 103 100 ??BILIRUBIN,?TOTAL?(mg/dL) 0.9 0.5 ??PROTEIN?TOTAL?(gm/dl) 6.2 6.2 ??ALBUMIN,?SERUM?(gm/dl) 4.0 4.0 ??GLOBULIN?(gm/dl) 2.2?L 2.2?L ??ALBUMIN/GLOBULIN?RATIO 1.8 1.8 ??CALCIUM,?SERUM?(mg/dL) 8.9 8.4 ??CALCIUM?SERUM?(CORRECTED)?(mg/dL) 8.9 8.4?L ASSESSMENT/PLAN: Ping Silva, a patient with triple-negative breast cancer, is currently undergoing immunotherapy treatment with Keytruda and is being monitored for cancer recurrence. 1. Ms. Gallegos has about 3 to 4 cm mass palpable in the left breast. S/p cycle 4 pembrolizumab, Taxol and carboplatin chemotherapy on 02/11/2024 in the neoadjuvant setting. 2. She recently had a fourth cycle of AC chemotherapy in the neoadjuvant. 3. triple negative breast cancer of the right breast. 4. Patient had 3 cycles of neoadjuvant AC chemotherapy so far. Her last chemo was given in June 2023. 5. History of CLL. Chemotherapy is complete On immunotherapy Triple-negative breast cancer Assessment: Patient is currently on immunotherapy treatment with Keytruda for triple-negative breast cancer. They have completed 10 treatments, with the th scheduled for October. Approximately 6 treatments remain, with completion expected on March 09. The patient's labs look good, but there is evidence of mild anemia. Regular monitoring is essential to ensure the cancer has not spread or returned. Plan: - Continue Keytruda immunotherapy treatment - th treatment scheduled for October - Complete remaining 6 treatments, finishing on March 09 - Perform MRD (Minimal Residual Disease) testing: - [facility] blood test every 3 months - Conduct body scan (imaging study) - Check labs: - Assess for iron deficiency - Evaluate all hormones - Patient education: - Inform about potential side effects of immunotherapy : blood in stool, new shortness of breath, or abdominal pain,new rash,sob - Instruct to go to the emergency room if these symptoms occur - Follow-up appointment in 2 months Mild anemia Assessment: Patient's labs indicate mild anemia. Further evaluation is needed to determine the underlying cause and appropriate management. Plan: - Check labs: - Assess for iron deficiency - Evaluate all hormones - Reassess at follow-up appointment CBC CMP TSH T4 ORDERS: Order # Description [id number] CBC + Comprehensive Metabolic Panel [id number] Lab Appointment [id number] CBC + Comprehensive Metabolic Panel [id number] Lab Appointment [id number] CBC + Comprehensive Metabolic Panel [id number] Lab Appointment [id number] CBC + Comprehensive Metabolic Panel [id number] Lab Appointment [id number] CBC + Comprehensive Metabolic Panel [id number] Lab Appointment [id number] CBC + Comprehensive Metabolic Panel [id number] Lab Appointment [id number] CBC + Comprehensive Metabolic Panel [id number] Lab Appointment RETURN TO CLINIC: 2 months BILLING AND COMPLIANCE: I reviewed external records from providers outside my specialty as summarized above. I spent a total of 50 minutes on this patient?s care on the day of their visit excluding time spent related to any billed procedures. This time includes time spent with the patient as well as time spent documenting in the medical record, reviewing patients records and tests, obtaining history, placing orders, communicating with other healthcare professionals, counseling the patient, family or caregiver, and/or care coordination for the diagnoses above. Electronically Signed by: {Object.Sanct_ID*[email or web address]@M}, {Object.Sanct_ID*PnP.Suffix@U} D: {Object.Sanct_Date} T: {Object.Sanct_Time} CC: PCP: Jun Grullon Referring: Jun Grullon This document was completed utilizing speech recognition software. Grammatical errors, random word insertions, pronoun errors, and incomplete sentences are an occasional consequence of this system due to software limitations, ambient noise, and hardware issues. Any formal questions or concerns about the content, text or information contained within the body of this dictation should be directly addressed to the provider for clarification.
== END 2024-10-24 23:59 | disposition home or self-care (01) ==
LOC: SCTC 13:08
PROVIDERS: PCP Family Medicine; Referring Provider Family Medicine; Visit Provider Internal Medicine Hematology & Oncology
DX: Z51.11 Encounter for antineoplastic chemotherapy (principal); C50.412 Malignant neoplasm of upper-outer quadrant of left female breast; Z17.421 Hormone receptor negative with human epidermal growth factor receptor 2 negative status; D64.9 Anemia, unspecified; Z60.2 Problems related to living alone; Z85.6 Personal history of leukemia
CPT/HCPCS: 36591; 80053; 84443; 85025; 96413; 99212; A4216; J1642; J7040; J7050; J9271; G0463

== ENCOUNTER 2024-11-03 13:09 | Outpatient (RCR) | payer MEDICARE, MEDICAID, SELFPAY ==
[2024-11-02 14:14] LABS: Basophils % (Auto) 0 % (0-2.5); Eosinophils # (Auto) 0.1 Thou/mm3 (0.0-0.5); Eosinophils % (Auto) 2 % (0-10); Hematocrit 35.7 % (36.0-46.0); Immature Granulocytes % (Auto) 0 % (0-0); Immature Granulocytes Auto 0.02 Thou/mm3 (0.00-0.00); Lymphocytes # (Auto) 2.8 Thou/mm3 (1.0-4.8); Lymphocytes % (Auto) 44 % (10-50); Mean Corpuscular HGB Conc 33.6 g/dl (31.0-37.0); Mean Corpuscular Hemoglobin 26.4 pg (25.0-35.0); Mean Corpuscular Volume 79 fL (80-100); Monocytes # (Auto) 0.4 Thou/mm3 (0.0-0.8); Monocytes % (Auto) 6 % (0-12); Neutrophils % (Auto) 48 % (37-80); Nucleated Red Blood Cell % 0 /100 WBC (0); Platelet Count 158 Thou/mm3 (140-440); RDW Standard Deviation 46.5 fL (36.4-46.3); Red Blood Count 4.55 Miln/mm3 (4.00-5.20); White Blood Count 6.3 Thou/mm3 (3.6-11.0)
[2024-11-02 14:43] LABS: Aspartate Amino Transferase 20 U/L (0-34)
[2024-11-02 14:57] LABS: Alanine Aminotransferase 8 U/L (10-49); Albumin/Globulin Ratio 1.8 (1.2-2.2); Alkaline Phosphatase 91 U/L (46-116); Anion Gap 12 (7-16); BUN/Creatinine Ratio 15 Ratio (12-20); Bilirubin,Total 0.8 mg/dL (0.3-1.2); Blood Urea Nitrogen 12 mg/dL (9-23); Calcium 8.8 mg/dL (8.3-10.6); Calcium (Corrected) 8.8 mg/dL (8.5-10.1); Carbon Dioxide 25.8 mMol/L (20.0-31.0); Chloride 107 mMol/L (98-107); Creatinine (Component) 0.8 mg/dL (0.6-1.3); Globulin 2.2 gm/dL (2.3-3.5); Glucose 86 mg/dL (74-106); Osmolality,Calculated 287 (275-295); Potassium 4.3 mMol/L (3.4-5.1); Sodium 145 mMol/L (136-145); Thyroid Stimulating Hormone 1.76 uIU/mL (0.55-4.78); Total Protein 6.2 gm/dL (5.7-8.2); eGFR > 60 See Note
== END 2024-11-23 23:59 | disposition home or self-care (01) ==
LOC: SCTC 13:09
PROVIDERS: Referring Provider Internal Medicine Hematology & Oncology; Visit Provider Internal Medicine Hematology & Oncology
DX: Z51.11 Encounter for antineoplastic chemotherapy (principal); C50.412 Malignant neoplasm of upper-outer quadrant of left female breast; Z17.421 Hormone receptor negative with human epidermal growth factor receptor 2 negative status; Z85.6 Personal history of leukemia; D64.9 Anemia, unspecified
CPT/HCPCS: 36591; 80053; 84443; 84450; 85025; 96413; A4216; J1642; J7040; J7050; J9271

== ENCOUNTER → 2024-11-18 | Outpatient (CLI) | payer MEDICARE, MEDICAID, SELFPAY ==
--- NOTE | 2024-11-18 12:32 | XR_ITS ---
Examination: CT abdomen, without intravenous contrast. CT pelvis, without intravenous contrast. CT abdomen, with intravenous contrast. CT pelvis, with intravenous contrast. 2-D sagittal coronal reconstructions. Date and time of exam:November 18, [address] chest abdomen pelvis January 22, 2024 INDICATIONS: Diagnosis malignant neoplasm left breast, undergoing chemotherapy CTDI: vol (mGy) 15.54 DLP: (mGycm) 630 Technique: Multiple 3.0 axial images of the abdomen and pelvis without intravenous contrast, 3.0 mm slice thickness. Multiple 3.0 postcontrast images abdomen and pelvis also obtained, post intravenous injection 60 cc [id number] 2-D sagittal and coronal reconstructions. Low dose protocols were performed. One or more of the following dose reduction techniques were used; automated exposure control, adjustment of the mA and/or KV according to patient size, use of iterative reconstruction technique. Findings: No interval liver or splenic lesions Absent gallbladder No pancreatic or adrenal mass No interval lymphadenopathy 2 mm 1 mm right renal calculi, 2 mm 1 mm 1 mm left renal calculi No hydronephrosis or ureteral calculi Normal appendix No bowel obstruction Scattered colonic diverticulosis Anteverted uterus with apparent dilated endometrium measuring up to 23 years Right hip replacement with orthopedic screw traverses region Advanced narrowing left hip joint IMPRESSION: No interval metastatic disease Bilateral renal calculi Recommend transvaginal pelvic sonography follow-up to exclude abnormal thickening of the endometrium
== END | disposition home or self-care (01) ==
PROVIDERS: Referring Provider Internal Medicine Hematology & Oncology; Visit Provider Internal Medicine Hematology & Oncology
DX: N20.0 Calculus of kidney (principal); C50.112 Malignant neoplasm of central portion of left female breast
CPT/HCPCS: 74178; A4649; Q9967

== ENCOUNTER 2024-12-22 13:00 | Outpatient (RCR) | payer MEDICARE, MEDICAID, SELFPAY ==
[2024-11-24 16:28] LABS: Basophils # (Auto) 0.0 Thou/mm3 (0.0-0.2); Basophils % (Auto) 0 % (0-2.5); Eosinophils # (Auto) 0.1 Thou/mm3 (0.0-0.5); Eosinophils % (Auto) 2 % (0-10); Hematocrit 35.8 % (36.0-46.0); Hemoglobin 11.5 g/dL (12.0-16.0); Immature Granulocytes Auto 0.03 Thou/mm3 (0.00-0.00); Lymphocytes # (Auto) 2.1 Thou/mm3 (1.0-4.8); Lymphocytes % (Auto) 33 % (10-50); Mean Corpuscular HGB Conc 32.1 g/dl (31.0-37.0); Mean Corpuscular Hemoglobin 26.4 pg (25.0-35.0); Mean Corpuscular Volume 82 fL (80-100); Monocytes # (Auto) 0.4 Thou/mm3 (0.0-0.8); Monocytes % (Auto) 6 % (0-12); Neutrophils # (Auto) 3.7 Thou/mm3 (1.8-7.7); Neutrophils % (Auto) 59 % (37-80); Nucleated Red Blood Cell # 0.00 Thou/mm3 (0.00-0.00); Nucleated Red Blood Cell % 0 /100 WBC (0); Platelet Count 150 Thou/mm3 (140-440); RDW Standard Deviation 49.7 fL (36.4-46.3); Red Blood Count 4.35 Miln/mm3 (4.00-5.20); White Blood Count 6.3 Thou/mm3 (3.6-11.0)
[2024-11-24 16:47] LABS: Alanine Aminotransferase 12 U/L (10-49); Albumin, Serum 4.1 gm/dL (3.4-4.8); Albumin/Globulin Ratio 1.8 (1.2-2.2); Alkaline Phosphatase 97 U/L (46-116); Anion Gap 9 (7-16); Aspartate Amino Transferase 20 U/L (0-34); BUN/Creatinine Ratio 15 Ratio (12-20); Bilirubin,Total 1.0 mg/dL (0.3-1.2); Blood Urea Nitrogen 17 mg/dL (9-23); Calcium 8.8 mg/dL (8.3-10.6); Calcium (Corrected) 8.8 mg/dL (8.5-10.1); Carbon Dioxide 24.3 mMol/L (20.0-31.0); Chloride 110 mMol/L (98-107); Creatinine (Component) 1.1 mg/dL (0.6-1.3); Free T3 1.7 pg/mL (2.3-4.2); Globulin 2.3 gm/dL (2.3-3.5); Glucose 100 mg/dL (74-106); Osmolality,Calculated 286 (275-295); Potassium 4.5 mMol/L (3.4-5.1); Sodium 143 mMol/L (136-145); Thyroid Stimulating Hormone 1.47 uIU/mL (0.55-4.78); Total Protein 6.4 gm/dL (5.7-8.2); eGFR 52 See Note
[2024-11-24 16:48] LABS: Ferritin 25 ng/mL (7.3-270.7); Folate 19.18 ng/mL (>5.38); Iron 65 mcg/dL (50-170); Percent Iron Saturation 19 % (20-55); Total Iron Binding Capacity 337 mcg/dL (250-425); Unsaturated Iron Binding 272 (225-295); Vitamin B12 261 pg/mL (211-911)
[2024-11-25 14:01] LABS: Collection Type, Urine Voided
[2024-11-25 14:14] LABS: Bacteria,Urine Rare; Bilirubin,Urine Negative (Negative); Blood,Urine Negative (Negative); Color,Urine Yellow (Lt Yel-Yel); Glucose, Urine Negative (Negative); Ketones,Urine Negative (Negative); Leukocyte Esterase,Urine Positive (Negative); Nitrite,Urine Negative (Negative); PH,Urine 5.0 (5.0-7.0); Protein,Urine Negative (Neg - Trace); RBC,Urine 1 /hpf (0-3); Specific Gravity,Urine 1.026 (1.001-1.035); Squamous Epithelial Cell,Urine 1 /hpf (0-5); Urobilinogen,Urine Negative mg/dL (0.0-1.0); WBC,Urine 4 /hpf (0-5)
[2024-11-25 14:28] LABS: Clarity,Urine Cloudy (Clear/Hazy)
[2024-12-16 13:30] LABS: Basophils # (Auto) 0.0 Thou/mm3 (0.0-0.2); Basophils % (Auto) 0 % (0-2.5); Eosinophils # (Auto) 0.2 Thou/mm3 (0.0-0.5); Eosinophils % (Auto) 3 % (0-10); Hematocrit 35.7 % (36.0-46.0); Hemoglobin 11.5 g/dL (12.0-16.0); Immature Granulocytes Auto 0.02 Thou/mm3 (0.00-0.00); Lymphocytes # (Auto) 2.8 Thou/mm3 (1.0-4.8); Lymphocytes % (Auto) 43 % (10-50); Mean Corpuscular HGB Conc 32.2 g/dl (31.0-37.0); Mean Corpuscular Hemoglobin 26.7 pg (25.0-35.0); Mean Corpuscular Volume 83 fL (80-100); Monocytes # (Auto) 0.5 Thou/mm3 (0.0-0.8); Monocytes % (Auto) 8 % (0-12); Neutrophils # (Auto) 3.0 Thou/mm3 (1.8-7.7); Neutrophils % (Auto) 46 % (37-80); Nucleated Red Blood Cell # 0.00 Thou/mm3 (0.00-0.00); Nucleated Red Blood Cell % 0 /100 WBC (0); Platelet Count 119 Thou/mm3 (140-440); RDW Standard Deviation 49.1 fL (36.4-46.3); Red Blood Count 4.30 Miln/mm3 (4.00-5.20); White Blood Count 6.5 Thou/mm3 (3.6-11.0)
[2024-12-16 14:13] LABS: Alanine Aminotransferase 8 U/L (10-49); Albumin, Serum 3.9 gm/dL (3.4-4.8); Albumin/Globulin Ratio 1.7 (1.2-2.2); Alkaline Phosphatase 81 U/L (46-116); Anion Gap 9 (7-16); Aspartate Amino Transferase 16 U/L (0-34); BUN/Creatinine Ratio 22 Ratio (12-20); Bilirubin,Total 0.7 mg/dL (0.3-1.2); Blood Urea Nitrogen 13 mg/dL (9-23); Calcium 8.4 mg/dL (8.3-10.6); Calcium (Corrected) 8.5 mg/dL (8.5-10.1); Carbon Dioxide 25.7 mMol/L (20.0-31.0); Chloride 107 mMol/L (98-107); Creatinine (Component) 0.6 mg/dL (0.6-1.3); Globulin 2.3 gm/dL (2.3-3.5); Glucose 89 mg/dL (74-106); Osmolality,Calculated 282 (275-295); Potassium 3.9 mMol/L (3.4-5.1); Sodium 142 mMol/L (136-145); Thyroid Stimulating Hormone 1.83 uIU/mL (0.55-4.78); Total Protein 6.2 gm/dL (5.7-8.2); eGFR > 60 See Note
[2024-12-16 14:16] LABS: Collection Type, Urine Voided
[2024-12-16 14:25] LABS: Bacteria,Urine 4+; Bilirubin,Urine Negative (Negative); Blood,Urine Negative (Negative); Clarity,Urine Clear (Clear/Hazy); Color,Urine Colorless (Lt Yel-Yel); Glucose, Urine Negative (Negative); Ketones,Urine Negative (Negative); Leukocyte Esterase,Urine Negative (Negative); Nitrite,Urine Negative (Negative); PH,Urine 5.5 (5.0-7.0); Protein,Urine Negative (Neg - Trace); RBC,Urine 1 /hpf (0-3); Specific Gravity,Urine 1.004 (1.001-1.035); Squamous Epithelial Cell,Urine 1 /hpf (0-5); Urobilinogen,Urine Negative mg/dL (0.0-1.0); WBC,Urine 2 /hpf (0-5)
== END 2024-12-24 23:59 | disposition home or self-care (01) ==
LOC: SCTC 13:00
PROVIDERS: PCP Internal Medicine; Referring Provider Internal Medicine Hematology & Oncology; Visit Provider Internal Medicine Hematology & Oncology
DX: Z51.11 Encounter for antineoplastic chemotherapy (principal); C50.412 Malignant neoplasm of upper-outer quadrant of left female breast; Z17.421 Hormone receptor negative with human epidermal growth factor receptor 2 negative status; Z85.6 Personal history of leukemia; D64.9 Anemia, unspecified
CPT/HCPCS: 36415; 36591; 80053; 81001; 82607; 82728; 82746; 83540; 83550; 84443; 84481; 85025; 87077; 87086; 87186; 96365; 96413; A4216; J0696; J1642; J7040; J7050; J9271

== ENCOUNTER 2025-01-06 12:46 | Outpatient (RCR) | payer MEDICARE, MEDICAID, SELFPAY ==
[2025-01-05 14:18] LABS: Basophils # (Auto) 0.0 Thou/mm3 (0.0-0.2); Basophils % (Auto) 0 % (0-2.5); Eosinophils # (Auto) 0.2 Thou/mm3 (0.0-0.5); Eosinophils % (Auto) 3 % (0-10); Hematocrit 35.7 % (36.0-46.0); Hemoglobin 11.7 g/dL (12.0-16.0); Immature Granulocytes Auto 0.02 Thou/mm3 (0.00-0.00); Lymphocytes # (Auto) 3.0 Thou/mm3 (1.0-4.8); Lymphocytes % (Auto) 42 % (10-50); Mean Corpuscular HGB Conc 32.8 g/dl (31.0-37.0); Mean Corpuscular Hemoglobin 27.3 pg (25.0-35.0); Mean Corpuscular Volume 83 fL (80-100); Monocytes # (Auto) 0.5 Thou/mm3 (0.0-0.8); Monocytes % (Auto) 6 % (0-12); Neutrophils # (Auto) 3.6 Thou/mm3 (1.8-7.7); Neutrophils % (Auto) 49 % (37-80); Nucleated Red Blood Cell # 0.00 Thou/mm3 (0.00-0.00); Nucleated Red Blood Cell % 0 /100 WBC (0); Platelet Count 121 Thou/mm3 (140-440); RDW Standard Deviation 47.2 fL (36.4-46.3); Red Blood Count 4.28 Miln/mm3 (4.00-5.20); White Blood Count 7.3 Thou/mm3 (3.6-11.0)
[2025-01-05 14:52] LABS: Alanine Aminotransferase 9 U/L (10-49); Albumin, Serum 3.8 gm/dL (3.4-4.8); Albumin/Globulin Ratio 1.9 (1.2-2.2); Alkaline Phosphatase 80 U/L (46-116); Anion Gap 10 (7-16); Aspartate Amino Transferase 19 U/L (0-34); BUN/Creatinine Ratio 15 Ratio (12-20); Bilirubin,Total 0.7 mg/dL (0.3-1.2); Blood Urea Nitrogen 12 mg/dL (9-23); Calcium 8.4 mg/dL (8.3-10.6); Calcium (Corrected) 8.6 mg/dL (8.5-10.1); Carbon Dioxide 24.2 mMol/L (20.0-31.0); Chloride 110 mMol/L (98-107); Creatinine (Component) 0.8 mg/dL (0.6-1.3); Globulin 2.0 gm/dL (2.3-3.5); Glucose 111 mg/dL (74-106); Osmolality,Calculated 287 (275-295); Potassium 4.0 mMol/L (3.4-5.1); Sodium 144 mMol/L (136-145); Thyroid Stimulating Hormone 1.39 uIU/mL (0.55-4.78); Total Protein 5.8 gm/dL (5.7-8.2); eGFR > 60 See Note
[2025-01-06 14:24] LABS: LDH (Lactate Dehydrogenase) 163 U/L (120-246)
[2025-01-06 14:30] LABS: Ferritin 22 ng/mL (7.3-270.7); Iron 25 mcg/dL (50-170); Percent Iron Saturation 7 % (20-55); Total Iron Binding Capacity 338 mcg/dL (250-425); Unsaturated Iron Binding 313 (225-295)
[2025-01-06 15:07] LABS: Folate 15.08 ng/mL (>5.38); Follicle Stimulating Hormone 90.65 mIU/mL (See Note); Vitamin B12 329 pg/mL (211-911)
[2025-01-13 06:52] LABS: Luteinizing Hormone* 45.2 mIU/mL
[2025-01-19 09:42] LABS: Erythropoietin (EPO)* 21.7 mIU/mL (2.6-18.5); Estradiol, Ultrasensitive* <2 pg/mL; Haptoglobin* 126 mg/dL (43-212)
== END 2025-01-24 23:59 | disposition home or self-care (01) ==
LOC: SCTC 12:46
PROVIDERS: Referring Provider Internal Medicine Hematology & Oncology; Visit Provider Internal Medicine Hematology & Oncology
DX: Z51.12 Encounter for antineoplastic immunotherapy (principal); C50.412 Malignant neoplasm of upper-outer quadrant of left female breast; Z17.421 Hormone receptor negative with human epidermal growth factor receptor 2 negative status; D64.9 Anemia, unspecified
CPT/HCPCS: 36591; 80053; 82607; 82668; 82670; 82728; 82746; 83001; 83002; 83010; 83540; 83550; 83615; 84443; 85025; 96413; A4216; J1642; J1756; J7050; J9271

== ENCOUNTER 2025-03-25 13:00 | Outpatient (RCR) | payer MEDICARE, MEDICAID, SELFPAY ==
[2025-03-11 13:48] LABS: Basophils # (Auto) 0.0 Thou/mm3 (0.0-0.2); Basophils % (Auto) 0 % (0-2.5); Eosinophils # (Auto) 0.2 Thou/mm3 (0.0-0.5); Eosinophils % (Auto) 2 % (0-10); Hematocrit 41.8 % (36.0-46.0); Hemoglobin 13.6 g/dL (12.0-16.0); Immature Granulocytes Auto 0.03 Thou/mm3 (0.00-0.00); Lymphocytes # (Auto) 3.1 Thou/mm3 (1.0-4.8); Lymphocytes % (Auto) 42 % (10-50); Mean Corpuscular HGB Conc 32.5 g/dl (31.0-37.0); Mean Corpuscular Hemoglobin 27.9 pg (25.0-35.0); Mean Corpuscular Volume 86 fL (80-100); Monocytes # (Auto) 0.6 Thou/mm3 (0.0-0.8); Monocytes % (Auto) 8 % (0-12); Neutrophils # (Auto) 3.5 Thou/mm3 (1.8-7.7); Neutrophils % (Auto) 47 % (37-80); Nucleated Red Blood Cell # 0.00 Thou/mm3 (0.00-0.00); Nucleated Red Blood Cell % 0 /100 WBC (0); Platelet Count 128 Thou/mm3 (140-440); RDW Standard Deviation 54.8 fL (36.4-46.3); Red Blood Count 4.88 Miln/mm3 (4.00-5.20); White Blood Count 7.4 Thou/mm3 (3.6-11.0)
[2025-03-11 14:08] LABS: Alanine Aminotransferase 30 U/L (10-49); Albumin, Serum 4.2 gm/dL (3.4-4.8); Albumin/Globulin Ratio 2.2 (1.2-2.2); Alkaline Phosphatase 77 U/L (46-116); Anion Gap 10 (7-16); Aspartate Amino Transferase 25 U/L (0-34); BUN/Creatinine Ratio 18 Ratio (12-20); Bilirubin,Total 0.7 mg/dL (0.3-1.2); Blood Urea Nitrogen 18 mg/dL (9-23); Calcium 8.7 mg/dL (8.3-10.6); Calcium (Corrected) 8.7 mg/dL (8.5-10.1); Carbon Dioxide 24.5 mMol/L (20.0-31.0); Chloride 109 mMol/L (98-107); Creatinine (Component) 1.0 mg/dL (0.6-1.3); Globulin 1.9 gm/dL (2.3-3.5); Glucose 110 mg/dL (74-106); Osmolality,Calculated 287 (275-295); Potassium 4.0 mMol/L (3.4-5.1); Sodium 143 mMol/L (136-145); Thyroid Stimulating Hormone 1.78 uIU/mL (0.55-4.78); Total Protein 6.1 gm/dL (5.7-8.2); eGFR 59 See Note
== END 2025-03-26 23:59 | disposition home or self-care (01) ==
LOC: SCTC 13:00
PROVIDERS: Referring Provider Internal Medicine Hematology & Oncology; Visit Provider Internal Medicine Hematology & Oncology
DX: Z51.12 Encounter for antineoplastic immunotherapy (principal); C50.412 Malignant neoplasm of upper-outer quadrant of left female breast; Z17.421 Hormone receptor negative with human epidermal growth factor receptor 2 negative status; D64.9 Anemia, unspecified
CPT/HCPCS: 36415; 80053; 84443; 85025; 96365; 96367; 96375; 96413; J1642; J1756; J2919; J3490; J7040; J9271

== ENCOUNTER 2025-04-08 13:10 | Outpatient (RCR) | payer MEDICARE, MEDICAID, SELFPAY | END 2025-04-25 23:59 | disposition home or self-care (01) | LOC: SCTC 13:10 | PROVIDERS: Referring Provider Internal Medicine Hematology & Oncology; Visit Provider Internal Medicine Hematology & Oncology | DX: D50.9 Iron deficiency anemia, unspecified (principal); C50.412 Malignant neoplasm of upper-outer quadrant of left female breast; Z17.421 Hormone receptor negative with human epidermal growth factor receptor 2 negative status; Z85.6 Personal history of leukemia; Z92.21 Personal history of antineoplastic chemotherapy | CPT/HCPCS: 80053; 84443; 85025; 96365; 96375; A4216; J1642; J1756; J2919; J3490; J7040 ==

== ENCOUNTER 2025-04-27 12:50 | Outpatient (RCR) | payer MEDICARE, MEDICAID, SELFPAY ==
[2025-04-26 14:40] LABS: Basophils # (Auto) 0.0 Thou/mm3 (0.0-0.2); Basophils % (Auto) 0 % (0-2.5); Eosinophils # (Auto) 0.1 Thou/mm3 (0.0-0.5); Eosinophils % (Auto) 2 % (0-10); Hematocrit 43.3 % (36.0-46.0); Hemoglobin 14.5 g/dL (12.0-16.0); Immature Granulocytes Auto 0.02 Thou/mm3 (0.00-0.00); Lymphocytes # (Auto) 3.1 Thou/mm3 (1.0-4.8); Lymphocytes % (Auto) 44 % (10-50); Mean Corpuscular HGB Conc 33.5 g/dl (31.0-37.0); Mean Corpuscular Hemoglobin 29.6 pg (25.0-35.0); Mean Corpuscular Volume 88 fL (80-100); Monocytes # (Auto) 0.5 Thou/mm3 (0.0-0.8); Monocytes % (Auto) 7 % (0-12); Neutrophils # (Auto) 3.4 Thou/mm3 (1.8-7.7); Neutrophils % (Auto) 47 % (37-80); Nucleated Red Blood Cell # 0.00 Thou/mm3 (0.00-0.00); Nucleated Red Blood Cell % 0 /100 WBC (0); Platelet Count 107 Thou/mm3 (140-440); RDW Standard Deviation 50.8 fL (36.4-46.3); Red Blood Count 4.90 Miln/mm3 (4.00-5.20); White Blood Count 7.2 Thou/mm3 (3.6-11.0)
[2025-04-26 15:08] LABS: Alanine Aminotransferase 20 U/L (10-49); Albumin, Serum 4.2 gm/dL (3.4-4.8); Albumin/Globulin Ratio 2.1 (1.2-2.2); Alkaline Phosphatase 110 U/L (46-116); Anion Gap 7 (7-16); Aspartate Amino Transferase 23 U/L (0-34); BUN/Creatinine Ratio 23 Ratio (12-20); Bilirubin,Total 0.6 mg/dL (0.3-1.2); Blood Urea Nitrogen 16 mg/dL (9-23); Calcium 8.6 mg/dL (8.3-10.6); Calcium (Corrected) 8.6 mg/dL (8.5-10.1); Carbon Dioxide 26.5 mMol/L (20.0-31.0); Chloride 108 mMol/L (98-107); Creatinine (Component) 0.7 mg/dL (0.6-1.3); Globulin 2.0 gm/dL (2.3-3.5); Glucose 91 mg/dL (74-106); Osmolality,Calculated 282 (275-295); Potassium 4.2 mMol/L (3.4-5.1); Sodium 141 mMol/L (136-145); Total Protein 6.2 gm/dL (5.7-8.2); eGFR > 60 See Note
--- NOTE | 2025-04-27 15:27 | CTCFLWUP_ITS ---
Patient: SHIRA GALLEGOS : 1950 Page 4 of 6 FOLLOW UP NOTE DATE OF SERVICE: 04/27/2025 NAME: SHIRA GALLEGOS ACCOUNT: [id number] : 1950 AGE: 74 INTERVAL HISTORY: Patient is diagnosed with triple negative breast cancer .patient is completed chemo-immunotherpy. Patient is doing well. She wants to keep her port for now. She does nto take calcium and vit D3 Subjective: Chief Complaint monitoring for cancer recurrence Review of Systems Gastrointestinal: Negative for blood in the stool, abdominal pain. Respiratory: Negative for new shortness of breath. Objective: Laboratory, Imaging, and Diagnostic Test Results - Labs: - Mild anemia noted (specific values not provided) ONCOLOGY HISTORY: DIAGNOSIS: Malignant neoplasm of central portion of left female breast [ICD10] C50.112 s/p mastectomy DATE OF DIAGNOSIS: Initial diagnosis in 2021 STAGE/TNM: TREATMENT HISTORY: Care?Plan Start?Date Cycle Day Intent DOXOrubicin?60,?Cyclophos?600?q?3wks 01/30/2024 1 21 Palliative Taxol?175/m2?q?2?wks?q?3wks?for?4?cycles 12/12/2023 1 21 Curative?(primary) TNBC?Pembro?17?cy?TaxCar?4?cy?Keynote?522?amended 11/21/2023 1 21 De-Bulking TNBC?Pembro?17?cy?TaxCar?4?cy?Keynote?522?amended 12/17/2023 1 21 De-Bulking VENOfer?200mg?IV?wkly?for?10?weeks 01/27/2025 1 70 Maintenance HISTORY OF PRESENT ILLNESS: Shira Gallegos is a 74-year-old ENG speaking female currently undergoing chemotherapy at [facility] transferred her care to our center due to transportation reasons. According to the patient she had 3 cycles of AC chemotherapy so far. Her last chemo was given in June 2023. Ms. Gallegos was tolerating chemotherapy reasonably well. She also has Chemo-Port in place. According to Ms. Gallegos it was never used and it was causing a lot of pain. She wants the Chemo-Port to be removed. I have very few records of her care. Will try to get the records. She also has a history of CLL. 12/02/2023: Ms. Gallegos had her fourth cycle of AC chemotherapy. 12/17/2023: Ms. Gallegos received first cycle of neoadjuvant pembrolizumab paclitaxel and carboplatin. 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 calcium carbonate-vit D3-min - 600 mg-10 mcg (400 unit) 2 tab Daily Medications Last Reconciled by Arminda Marrero MA on 04/27/2025 ALLERGIES: No Known Drug Allergies REVIEW OF SYSTEMS: A complete 14-point review of systems was performed and is negative except as noted in interval history. PHYSICAL EXAMINATION: VITAL SIGNS: Temperature?98.7, B/P?118/71, Oxygen?Saturation?97% Weight?96?lbs (Change?since?04/26/25:?-2.8?lbs) PAIN: 0 - No pain ECOG Performance Status: 0 - Asymptomatic and fully active GENERAL APPEARANCE: Appears well, in no apparent distress, appropriately interactive. HEENT: Normocephalic, no temporal wasting, normal conjunctiva, no scleral icterus, normal hearing, lips without lesions, neck normal range of motion. CARDIOVASCULAR: Not assessed. PULMONARY: Normal respiratory effort, no respiratory distress or use of accessory muscles, speaking in full sentences, no tachypnea. EXTREMITIES: No pedal edema or cyanosis. SKIN: Normal skin appearance. NEUROLOGIC: Alert and oriented x4. PSHYCHIATRIC: Appropriate affect, mood normal, behavior normal, intact thought and speech. Breast examination shows residual mass about 1 to 2 cm LABORATORY DATA: I have personally reviewed and interpreted each of the patient?s relevant lab tests, abnormal findings are below: Date 03/11/25 04/26/25 ??WHITE?BLOOD?COUNT?(Thou/mm3) 7.4 7.2 ??RED?BLOOD?COUNT?(Miln/mm3) 4.88 4.90 ??HEMOGLOBIN?(gm/dl) 13.6 14.5 ??HEMATOCRIT?(%) 41.8 43.3 ??PLATELET?COUNT?(Thou/mm3) 128?L 107?L ??NEUTROPHILS?%,?AUTO?(%) 47 47 ??LYMPH?%,?AUTO?(%) 42 44 ??NEUTROPHILS,?AUTO?(Thou/mm3) 3.5 3.4 ??GLUCOSE,RANDOM?(mg/dL) 110?H 91 ??BLOOD?UREA?NITROGEN?(mg/dL) 18 16 ??CREATININE?(mg/dL) 1.00 0.70 ??SODIUM?(mmol/L) 143 141 ??POTASSIUM?(mmol/L) 4.0 4.2 ??CHLORIDE?(mmol/L) 109?H 108?H ??CrCl?(CandG)?(ml/min) 33.28 49.13 ??AST/SGOT?(Unit/L) 25 23 ??ALT/SGPT?(Unit/L) 30 20 ??ALKALINE?PHOSPHATASE?(Unit/L) 77 110 ??BILIRUBIN,?TOTAL?(mg/dL) 0.7 0.6 ??PROTEIN?TOTAL?(gm/dl) 6.1 6.2 ??ALBUMIN,?SERUM?(gm/dl) 4.2 4.2 ??GLOBULIN?(gm/dl) 1.9?L 2.0?L ??ALBUMIN/GLOBULIN?RATIO 2.2 2.1 ??CALCIUM,?SERUM?(mg/dL) 8.7 8.6 ??CALCIUM?SERUM?(CORRECTED)?(mg/dL) 8.7 8.6 ASSESSMENT/PLAN: Ping Silva, a patient with triple-negative breast cancer 1. Ms. Gallegos had 3 to 4 cm mass palpable in the left breast. S/p pembrolizumab, Taxol and carboplatin chemotherapy in the neoadjuvant setting. Completed 1 year of immunotherapy 2. History of CLL. dez negative - Perform MRD (Minimal Residual Disease) testing: - [facility] blood test every 3 months Will get bone density Take calcium and vit D3 Mild anemia Resolved CBC CMP TSH T4 ORDERS: Order # Description [id number] Comprehensive Metabolic Panel - 12 + CBC with Auto Diff + CA 15-3 + MD Follow Up 3 Months [id number] DXA L-Spine and Hip [id number] MD Follow Up 6 Month RETURN TO CLINIC: I reviewed the diagnosis, prognosis, and recommended treatment/procedure options with the patient (and/or their legal player services representative), including the potential benefits, risks, side effects and alternative therapies. We also discussed the option of no treatment and the possibility of clinical trial participation, if applicable. All questions were addressed, and they demonstrated understanding. They provided informed consent to proceed with the proposed plan of care. BILLING AND COMPLIANCE: I reviewed external records from providers outside my specialty as summarized above. I spent a total of 50 minutes on this patient?s care on the day of their visit excluding time spent related to any billed procedures. This time includes time spent with the patient as well as time spent documenting in the medical record, reviewing patients records and tests, obtaining history, placing orders, communicating with other healthcare professionals, counseling the patient, family or caregiver, and/or care coordination for the diagnoses above. Electronically Signed by: Konstantin Azar MD T: 3:25 PM CC: PCP: No Primary/family, Physician Referring: Konstantin Azar This document was completed utilizing speech recognition software. Grammatical errors, random word insertions, pronoun errors, and incomplete sentences are an occasional consequence of this system due to software limitations, ambient noise, and hardware issues. Any formal questions or concerns about the content, text or information contained within the body of this dictation should be directly addressed to the provider for clarification.
== END 2025-05-26 23:59 | disposition home or self-care (01) ==
LOC: SCTC 12:50
PROVIDERS: Referring Provider Internal Medicine Hematology & Oncology; Visit Provider Internal Medicine Hematology & Oncology
DX: C50.112 Malignant neoplasm of central portion of left female breast (principal); Z17.421 Hormone receptor negative with human epidermal growth factor receptor 2 negative status; Z85.6 Personal history of leukemia
CPT/HCPCS: 36591; 80053; 85025; 99212; A4216; J1642; G0463